=== PATIENT | female | born 1995 | race Caucasian/White ===

== ENCOUNTER → 2017-12-01 07:43 | Outpatient (CLI) | payer BC, SELFPAY ==
--- NOTE | 2017-12-01 07:52 | NM_ITS ---
CLINICAL: 22-year-old female with reported history of chronic nausea. SEMI-SOLID PHASE 99m Tc SULFUR COLLOID GASTRIC EMPTYING STUDY COMPARISON: None available FINDINGS: The patient was administered 1.1 mCi of 99m Tc sulfur colloid mixed with oatmeal and consumed per os. Image acquisitions in the anterior-posterior projections for a total of 60 minutes. There is prompt visualization of the stomach. There is no gastroesophageal reflux identified. The T1/2 linear fit was calculated to be 28.32 minutes, (Normal: 12-56 minutes). NM/Gastric Emptying Study IMPRESSION: 1. NORMAL 99m Tc sulfur colloid semi-solid phase (oatmeal) gastric emptying imaging examination. A. There is normal and preserved semi-solid phase gastric emptying compared to normal controls. (Nettie et al, J Nucl Med Tech 38: 186, 2010). Electronically Signed: Mo Benson DO at 9:26 EST Tel , Service support ,
== END ==
PROVIDERS: Family Provider Nurse Practitioner; PCP Nurse Practitioner; Visit Provider Internal Medicine Gastroenterology
DX: R11.0 Nausea (principal)
CPT/HCPCS: 78264; A9541

== ENCOUNTER → 2017-12-23 13:10 | Outpatient (CLI) | payer BC, SELFPAY ==
--- NOTE | 2017-12-23 13:21 | US_ITS ---
STUDY: ULTRASOUND OF THE FEMALE PELVIS - COMPLETE REASON FOR EXAM: Female, 22 years old. Pelvic pain LMP: 11/29/2017 TECHNIQUE: Transabdominal TECHNICAL QUALITY: Adequate. COMPARISON: July 17, 2017 FINDINGS: The uterus is anteverted and is in a midline position. The uterus measures 10.0 x 5.5 x 2.4 cm. Normal uterine cervix. The endometrium measures 2.5 mm in thickness, and is hyperechoic. There is no demonstrated endometrial mass. There is no demonstrated myometrial mass. I.U.D. - The patient does not have an I.U.D. The right ovary is visualized. The right ovary measures 5.2 x 4.4 x 3.4 cm. There is a 4.5 x 3.3 x 3.0 cm right ovarian cyst that contains a fluid/fluid level. There is normal arterial and normal venous vascularity. The left ovary is visualized. The left ovary measures 2.9 x 2.9 x 3.5 cm. There is no left ovarian cyst or ovarian mass. There is no visualized left adnexal mass or complex lesion. There is normal arterial and normal venous vascularity. There is no fluid in the cul-de-sac. The pre void volume of the bladder was 411 ml. US/Pelvic (Non ) IMPRESSION: Enlarged right ovary secondary to a complex cyst that likely reflects an underlying hemorrhagic cyst or endometrioma, recommend follow-up ultrasound in 6-8 weeks to assess for resolution. Electronically Signed: Kasia Arshad MD at 19:45 EST Tel , Service support ,
== END ==
PROVIDERS: Family Provider Nurse Practitioner; PCP Nurse Practitioner; Visit Provider Nurse Practitioner Women's Health
DX: R10.2 Pelvic and perineal pain (principal)
CPT/HCPCS: 76856; 93976

== ENCOUNTER → 2018-01-19 10:50 | Outpatient (CLI) | payer BC, SELFPAY ==
--- NOTE | 2018-01-19 10:58 | RAD_ITS ---
STUDY: X-RAY - UNILATERAL RIBS ( LEFT ) REASON FOR EXAM: Female, 22 years old. Chest pain. TECHNIQUE: 4 view(s) of the ribs. COMPARISON: None. FINDINGS: Normal visualized ribs without a demonstrated fracture. The visualized lung is clear and expanded. RAD/Ribs Unil 2V No CXR IMPRESSION: Normal x-ray examination of the ribs. Electronically Signed: Moises Mcfarlane MD at 8:26 EDT , Service support ,
== END ==
LOC: HPRAD 10:55
PROVIDERS: Family Provider Nurse Practitioner; PCP Nurse Practitioner; Visit Provider Nurse Practitioner
DX: R10.9 Unspecified abdominal pain (principal)
CPT/HCPCS: 71100

== ENCOUNTER → 2018-01-25 09:15 | Outpatient (CLI) | payer BC, SELFPAY ==
--- NOTE | 2018-01-25 09:17 | US_ITS ---
STUDY: ABDOMINAL ULTRASOUND REASON FOR EXAM: Female, 22 years old. Left upper quadrant pain TECHNIQUE: Transabdominal ultrasound was performed with real-time and static granger scale imaging. TECHNICAL QUALITY: Adequate. COMPARISON: None. FINDINGS: Liver: The liver measures 15.6 cm. There is normal echogenicity of the liver. The bile ducts are within normal limits. There is hepatic color flow. The direction of portal flow is hepatopetal. There is no demonstrated mass lesion. Portal vein measurement: 9 mm Gallbladder: Normal distended gallbladder. The gallbladder wall measures 2 mm. There is a negative sonographic Fuller's sign. There is no pericholecystic fluid. There are no gallstones. Common Bile Duct (C.B.D.): The common bile duct measures 3 mm. Pancreas: Normal size of the head, body and tail of the pancreas. There is normal echogenicity of the pancreas. There is no demonstrated pancreatic mass or cyst. Spleen: Normal size of the spleen. The spleen measures 11.8 cm. Right Kidney: Normal size of the right kidney. The right kidney measures 11.1 x 4.7 x 3.9 cm. Normal renal cortex. The right cortex measures 1.7 cm. There is no demonstrated renal mass or cyst. There is no right hydronephrosis. Left Kidney: Normal size of the left kidney. The left kidney measures 12.2 x 4.6 x 5.6 cm. Normal renal cortex. The left cortex measures 1.3 cm. There is no demonstrated renal mass or cyst. There is no left hydronephrosis. Aorta: Tapers normally I.V.C.: The IVC is patent. There is no ascites. US/Abdomen Complete IMPRESSION: Normal abdominal ultrasound examination. Electronically Signed: Ap Zapien MD at 10:23 EDT , Service support ,
== END ==
LOC: USHP 09:16
PROVIDERS: Family Provider Nurse Practitioner; PCP Nurse Practitioner; Visit Provider Nurse Practitioner
DX: R10.9 Unspecified abdominal pain (principal)
CPT/HCPCS: 76700

== ENCOUNTER → 2018-01-26 09:00 | Outpatient (CLI) | payer BC, SELFPAY ==
--- NOTE | 2018-01-26 09:03 | US_ITS ---
STUDY: ULTRASOUND OF THE FEMALE PELVIS REASON FOR EXAM: Female, 22 years old. Follow-up right ovarian cyst LMP: January 09, 2018 TECHNIQUE: Transverse and longitudinal imaging of the pelvis was obtained transvaginally using real-time ultrasound. COMPARISON: December 23, 2017 FINDINGS: The uterus is anteverted and is in a midline position. The uterus measures 8.7 x 3.0 x 4.7 cm. The cervix is unremarkable. The endometrium measures 6.0 mm in thickness, and is hyperechoic. There is no demonstrated endometrial mass. There is no demonstrated myometrial mass. I.U.D. - The patient does not have an I.U.D. The right ovary is visualized. The right ovary measures 4.4 x 1.7 x 2.5 cm. There are follicles in the right ovary without a dominant cyst. There is no visualized right adnexal mass or complex lesion. There is normal arterial and normal venous vascularity. The left ovary is visualized. The left ovary measures 2.9 x 1.7 x 2.5 cm. There are follicles in the left ovary without a dominant cyst. There is no visualized left adnexal mass or complex lesion. There is normal arterial and normal venous vascularity. There is no fluid in the cul-de-sac. US/Pelvic (Non ) IMPRESSION: There are follicles in both ovaries. The cyst seen previously in the right ovary is no longer present. Electronically Signed: Clari Abbott MD at 15:50 EDT Tel Direct: [phone], Service support ,
--- NOTE | 2018-01-26 09:37 | US_ITS ---
STUDY: ULTRASOUND OF THE FEMALE PELVIS REASON FOR EXAM: Female, 22 years old. Follow-up right ovarian cyst LMP: January 09, 2018 TECHNIQUE: Transverse and longitudinal imaging of the pelvis was obtained transvaginally using real-time ultrasound. COMPARISON: December 23, 2017 FINDINGS: The uterus is anteverted and is in a midline position. The uterus measures 8.7 x 3.0 x 4.7 cm. The cervix is unremarkable. The endometrium measures 6.0 mm in thickness, and is hyperechoic. There is no demonstrated endometrial mass. There is no demonstrated myometrial mass. I.U.D. - The patient does not have an I.U.D. The right ovary is visualized. The right ovary measures 4.4 x 1.7 x 2.5 cm. There are follicles in the right ovary without a dominant cyst. There is no visualized right adnexal mass or complex lesion. There is normal arterial and normal venous vascularity. The left ovary is visualized. The left ovary measures 2.9 x 1.7 x 2.5 cm. There are follicles in the left ovary without a dominant cyst. There is no visualized left adnexal mass or complex lesion. There is normal arterial and normal venous vascularity. There is no fluid in the cul-de-sac. US/Transvaginal Non- IMPRESSION: There are follicles in both ovaries. The cyst seen previously in the right ovary is no longer present. Electronically Signed: Clari Abbott MD at 15:50 EDT Tel Direct: [phone], Service support ,
== END ==
LOC: USHP 09:01
PROVIDERS: Family Provider Nurse Practitioner; PCP Nurse Practitioner; Visit Provider Nurse Practitioner Women's Health
DX: N83.291 Other ovarian cyst, right side (principal)
CPT/HCPCS: 76830; 76856; 93976

== ENCOUNTER → 2018-05-24 12:03 | Outpatient (CLI) | payer BC, SELFPAY ==
[2018-05-24 12:22] LABS: Absolute Lymphocyte Count 2.29 X10^3/ul (0.83-4.51); Basophil# 0.02 X10^3/uL; Basophil% 0.3 % (0-1); Eosinophil# 0.17 X10^3/uL; Eosinophils% 2.5 % (0-5); Hematocrit 41.8 % (37-47); Hemoglobin 13.2 g/dl (12.0-15.0); Lymphocyte # 2.29 X10^3/ul (4.0); Lymphocyte % 33.5 % (19-41); Mean Corp Hgb Conc 31.6 g/gl (32-36); Mean Corpuscular Volume 79.2 fL (81-99); Mean Platelet Vol. 9.6 fl (6.2-12.0); Monocyte# 0.38 X10^3/uL; Monocyte% 5.6 % (0-10); Neutrophil # 3.97 X10^3/uL (2.7-7.7); POSITIVE COUNT NO; POSITIVE DIFFERENTIAL NO; POSITIVE MORPHOLOGY NO; Platelet Count 285 K/mm3 (150-450); RBC Distribution Width CV 13.1 % (11.6-14.6); RBC Distribution Width SD 37.4 fl (35.1-43.9); Red Blood Count 5.28 M/mm3 (4.2-5.4); White Blood Count 6.8 K/mm3 (4.4-11.0)
[2018-05-24 12:35] LABS: ALB/GLOB Ratio 1.2 RATIO (0.9-2.4); AST(SGOT) 14 U/L (15-37); Alanine Aminotransfer ALT/SGPT 17 U/L (13-56); Alkaline Phosphatase 60 U/L (45-117); Anion Gap 4 (5-15); BUN 8 mg/dL (7-18); BUN/Creat Ratio 8.2 RATIO (10-20); Calcium,Total 8.7 mg/dL (8.5-10.1); Chloride 108 mmol/L (98-107); Creatinine, Serum 0.97 mg/dL (0.55-1.02); EST Glomerular Filtration Rate 75 mL/min (>60); Est Glom Filt Rate - Afr Amer 91 mL/min (>60); Globulin 3.3 g/dL (2.2-4.2); Glucose 84 mg/dL (74-106); Potassium 4.2 mmol/L (3.5-5.1); Protein, Total 7.3 g/dL (6.4-8.2); Sodium Level 140 mmol/L (136-145)
--- NOTE | 2018-05-24 12:37 | CT_ITS ---
STUDY: CT ABDOMEN AND PELVIS WITH CONTRAST REASON FOR EXAM: Female, 22 years old. RLQ PAIN X 6 DAYS, NAUSEA RADIATION DOSAGE (If Supplied By Facility): CTDIvol = ( 19.74 ) mGy, DLP = ( 1213.20 ) mGycm TECHNIQUE: Transaxial images were obtained from the dome of the diaphragm to the symphysis pubis without oral contrast. 100 ml of Isovue 300 contrast was administered. Sagittal and coronal images were reconstructed. Individualized dose optimization techniques were used for this CT. COMPARISON: None. FINDINGS: The visualized lung bases are unremarkable. The visualized portions of the heart are within normal limits. Normal liver. Normal gallbladder and extrahepatic biliary system. Normal spleen. Normal pancreas. Normal bilateral adrenal glands. Normal right kidney. Normal left kidney. Normal visualized stomach. Normal small intestine. Normal colon. The appendix is visualized and appears normal. Normal abdominal aorta. Normal inferior vena cava. Normal retroperitoneum. Normal urinary bladder. Normal abdominal wall. Normal osseous structures. CT/Abdomen/Pelvis WITH Contrast IMPRESSION: Normal enhanced CT of the abdomen and pelvis. Electronically Signed: Franklyn Morales MD at 15:13 EDT Tel , Service support ,
== END ==
PROVIDERS: Family Provider Nurse Practitioner; PCP Nurse Practitioner; Visit Provider Nurse Practitioner Gerontology
DX: R10.31 Right lower quadrant pain (principal)
CPT/HCPCS: 36415; 74177; 80053; 85025; Q9967

== ENCOUNTER → 2018-06-09 08:51 | Outpatient (CLI) | payer BC, SELFPAY ==
--- NOTE | 2018-06-09 08:54 | US_ITS ---
STUDY: THYROID ULTRASOUND REASON FOR EXAM: Female, 22 years old. Thyroid nodules TECHNIQUE: Ultrasound evaluation of the thyroid was performed with real-time and static granger-scale imaging. COMPARISON: 05/01/2014 FINDINGS: RIGHT LOBE: The right lobe of the thyroid gland measures 5.7 x 1.8 x 1.5 cm. There is a homogeneous echotexture. There are multiple anechoic cysts of the right thyroid lobe measuring up to 5 mm that are similar when compared to the prior study. No solid nodules. LEFT LOBE: The left lobe of the thyroid gland measures 4.9 x 1.7 x 1.4 cm. There is a homogeneous echotexture. There are multiple anechoic cysts of the left thyroid lobe measuring up to 5 mm, stable since the prior study. No solid thyroid nodules. ISTHMUS: The isthmus measures 2 mm. The regional lymph nodes are normal. US/Thyroid IMPRESSION: 1. Stable thyromegaly. 2. Stable bilateral colloidal cysts. No solid nodules. Electronically Signed: Paolo Acharya MD at 16:06 EDT , Service support ,
== END ==
LOC: US 08:51
PROVIDERS: Family Provider Nurse Practitioner; PCP Nurse Practitioner; Visit Provider Nurse Practitioner
DX: E04.1 Nontoxic single thyroid nodule (principal)
CPT/HCPCS: 76536

== ENCOUNTER → 2018-06-29 14:41 | Outpatient (CLI) | payer BC, SELFPAY | LOC: CT 14:41 | PROVIDERS: Family Provider Nurse Practitioner; PCP Nurse Practitioner; Visit Provider Otolaryngology | DX: M54.2 Cervicalgia (principal); R22.1 Localized swelling, mass and lump, neck | CPT/HCPCS: 70491; Q9967 ==

== ENCOUNTER → 2018-07-06 14:33 | Outpatient (CLI) | payer BC, SELFPAY ==
[2018-07-06 17:53] LABS: Chlamydia Trachomatis by PCR Negative (Negative); Neisserai gonorrhoeae by PCR Negative (Negative); Probe Check PASS; Sample Adequacy Control PASS; Specimen Processing Control PASS
[2018-07-10 09:18] LABS: HPV Reflexed? NOT INDICATED
== END ==
PROVIDERS: Visit Provider Obstetrics & Gynecology
DX: Z12.4 Encounter for screening for malignant neoplasm of cervix (principal); Z11.3 Encounter for screening for infections with a predominantly sexual mode of transmission
CPT/HCPCS: 87491; 87591; 88175; G0145

== ENCOUNTER → 2019-01-10 11:53 | Outpatient (CLI) | payer BC, SELFPAY ==
--- NOTE | 2019-01-10 12:00 | RAD_ITS ---
STUDY: HYSTEROSALPINGOGRAM. REASON FOR EXAM: Female, 23 years old. Infertility. FLUOROSCOPY TIME (if supplied): (0:35) minutes/seconds. 3 images were obtained. TECHNIQUE: The concrete block plant supervisor performed a hysterosalpingogram. Contrast was injected. COMPARISON: None. FINDINGS: The uterus is unremarkable. The fallopian tubes are patent bilaterally with free spill. RAD/Salpingogram IMPRESSION: Patency of the bilateral fallopian tubes. Electronically Signed: Remy Mcpherson, at 14:30 EDT , Service support ,
== END ==
PROVIDERS: Family Provider Nurse Practitioner; PCP Nurse Practitioner; Referring Provider Obstetrics & Gynecology; Visit Provider Obstetrics & Gynecology
DX: Z31.41 Encounter for fertility testing (principal)
CPT/HCPCS: 58340; 74740; Q9967

== ENCOUNTER → 2019-07-15 10:54 | Outpatient (CLI) | payer BC, SELFPAY ==
--- NOTE | 2019-07-15 11:00 | US_ITS ---
STUDY: ABDOMINAL ULTRASOUND - RIGHT UPPER QUADRANT REASON FOR VISIT: Female, 23 years old. Right upper quadrant pain. TECHNIQUE: Ultrasound evaluation of the right upper quadrant was performed with real-time and static granger-scale imaging. TECHNICAL QUALITY: Adequate. COMPARISON: Comparison is made with prior ultrasound dated January 25, 2018. FINDINGS: Liver: The liver measures 14.9 cm. There is normal echogenicity of the liver. The bile ducts are within normal limits. There is hepatic color flow. The direction of portal flow is hepatopetal. There is no demonstrated mass lesion. Gallbladder: Normal distended gallbladder. The gallbladder wall measures 3.0 mm. There is a negative sonographic Fuller's sign. There is no pericholecystic fluid. There are no gallstones. A 5 mm x 4 mm polyp is seen adherent to the anterior wall of the gallbladder fundus. Common Bile Duct (C.B.D.): The common bile duct measures 2.0 mm. Pancreas: Normal size of the head, body and tail of the pancreas. There is normal echogenicity of the pancreas. There is no demonstrated pancreatic mass or cyst. Right Kidney: Normal size of the right kidney. The right kidney measures 11.2 cm x 5.1 cm x 4.6 cm. Normal renal cortex. The right cortex measures 1.6 cm. There is no demonstrated renal mass or cyst. There is no right hydronephrosis. US/Abdomen Limited IMPRESSION: 5 mm x 4 mm polyp along the anterior wall of the gallbladder fundus. Electronically Signed: Remy Mcpherson, at 15:23 EDT , Service support ,
== END ==
PROVIDERS: Family Provider Nurse Practitioner; PCP Nurse Practitioner; Referring Provider Internal Medicine; Visit Provider Internal Medicine
DX: R10.11 Right upper quadrant pain (principal)
CPT/HCPCS: 76705

== ENCOUNTER → 2019-07-21 11:42 | Outpatient (CLI) | payer BC, SELFPAY ==
--- NOTE | 2019-07-21 11:44 | NM_ITS ---
CLINICAL: 23-year-old female with reported history of right upper quadrant abdominal pain. RADIONUCLIDE HEPATOBILIARY SCINTIGRAPHY COMPARISON: Abdominal ultrasound report dated 07/15/2019 FINDINGS: Following the intravenous administration of 5.4 mCi of 99m Tc Mebrofenin, hepatobiliary images reveal: 1. Relatively prompt and homogeneous radiopharmaceutical concentration is noted by a normal sized liver. No parenchymal defects are identified. 2. Gallbladder activity is identified at 15 minutes post radiopharmaceutical administration. 3. Small intestinal tract is observed at 45 minutes following tracer injection. 4. Washout of the radiopharmaceutical by the hepatic parenchyma appears qualitatively normal. Cholecystokinin (0.02 ug/kg) was administered intravenously over a 30-minute period. The post CCK gallbladder ejection fraction calculated at 20 minutes following Cholecystokinin administration was noted to be 75.8 % (normal greater than 35%). During 30 minutes of post CCK imaging, there is no scintigraphic evidence of reflux of the radiotracer into the common hepatic duct or refilling of the gallbladder. AZ/Hepatobilliary Img w/Pharm Int IMPRESSION: 1. NORMAL 99m Tc Mebrofenin hepatobiliary imaging examination with Cholecystokinin. A. A gallbladder ejection fraction calculated to be greater than 35% following the administration of Cholecystokinin makes the probability of functional hepatobiliary disease (gallbladder and/or sphincter of Oddi dyskinesia) and/or organic hepatobiliary disease (chronic acalculous cholecystitis and/or cystic duct syndrome) to be low. (Charles Xavier et al, Journal of Nuclear Medicine 32:1695, 1990). Electronically Signed: Mo Benson DO at 10:47 EDT Tel , Service support ,
== END ==
PROVIDERS: Family Provider Nurse Practitioner; PCP Nurse Practitioner; Referring Provider Nurse Practitioner; Visit Provider Nurse Practitioner
DX: R10.11 Right upper quadrant pain (principal)
CPT/HCPCS: 78227; A9537; J2805

== ENCOUNTER → 2019-11-28 17:01 | Outpatient (CLI) | payer BC, SELFPAY | PROVIDERS: Visit Provider Advanced Practice Midwife | DX: Z12.4 Encounter for screening for malignant neoplasm of cervix (principal) ==

== ENCOUNTER 2020-09-02 15:36 | Emergency (ER) | payer BC, SELFPAY ==
[2020-09-02 15:37] VITALS: BP 139/83; PULSE 114; RESP 20; TEMP 36.7; O2SAT 100; BMI 39.2
[2020-09-02 15:40] VITALS: BP 139/83; PULSE 114; RESP 20; TEMP 36.7; O2SAT 100
[2020-09-02 15:49] VITALS: BP 137/79; PULSE 105; RESP 15; O2SAT 97
--- NOTE | 2020-09-02 16:10 | RAD_ITS ---
STUDY: X-RAY CHEST REASON FOR EXAM: Female, 25 years old. headache, loss of taste and smell, shielded pt 35 wks TECHNIQUE: Single frontal view of the chest. COMPARISON: 10/28/2017 FINDINGS: Azygos lobe. The lungs are clear and expanded. There is no demonstrated pleural abnormality. Normal size heart. Normal mediastinum and varsha. Normal visualized pulmonary arteries. Normal visualized aortic arch and descending thoracic aorta. Normal visualized thoracic spine. Normal visualized ribs, clavicles, and shoulders. There is no demonstrated abnormality of the visualized soft tissue structures of the upper abdomen. RAD/Chest 1 View (Portable) IMPRESSION: Normal x-ray examination of the chest. Electronically Signed: Ye Almeida MD at 17:11 EST Tel , Service support ,
--- NOTE | 2020-09-02 16:13 | ED.DCSUM_ITS ---
- ER Visit Summary Date of Service: 09/02/20 Chief Complaint: Headache with loss of the sense of smell and a mild sore throat. 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 Currently she is on insulin once daily. States her blood sugar is 150 today. Patient states that yesterday a gradual onset of a headache in the top of her head made worse with lights. Associated nausea. No vomiting or diarrhea. Said subjectively she is felt a little warm. Mild sore throat with decreasing smell. Denies any known Covid exposure. Denies any change in her sense of taste. No cough or shortness of breath. No hemoptysis. No dysuria or frequency. No hematuria. No abdominal pain. Physical Examination: Well-appearing young female vital signs stable afebrile. Pulse ox 97% on room air no signs hypoxia. H EENT exam unremarkable. Moist mucous membranes. Give dry reactive eyes motions are intact. Neck nontender. No lymphadenopathy. No meningismus. Able to touch her chin to chest. Lungs clear to auscultation bilaterally. Heart regular rhythm no murmur. Rate about 100. Abdomen gravid uterus nontender. Normal bowel sounds no peritoneal signs. Extremities moves all 4. Calves nontender without edema or cords. Back exam normal. Skin unremarkable. Neurologically she is awake alert with no focal motor deficits. NIH is 0. Equal symmetrical head of merchandise buying strength. Dorsi plantar action intact. [id number]-[id number] fingertip to nose normal. Test Results: BC white count of 6. Hemoglobin 10 consistent with anemia of . Electrolytes potassium 3.3. Normal creatinine normal gap. Glucose is normal at 85. Chest x-ray portable 1 view read as normal both myself and radiologist. Covid test is a send out and is pending. Repeat exam patient is doing well at 5:18 PM. Clinically looks good. Said her headache resolved after the IV fluids, p.o. Tylenol and IV Reglan. Her neurologic exam remains normal. She is comfortable being discharged home. We will follow-up with her TRANSCRIPTION TYPIST. Emergency Department Course and Treatment: 35-week female with gestational diabetes complaining of a mild headache that was gradual in onset not thunderclap headache with a normal neurologic exam. She also has viral type symptoms with loss of smell. Screening labs. IV fluids and Reglan for her headache. Covid testing. Treatment Plan: Fluids and rest. Tylenol for body aches and any headache. Waiting on the outpatient Covid results. Follow-up with her TRANSCRIPTION TYPIST. Disposition: Discharge Impression: Acute cephalgia at 35 weeks G1, P0 Acute cephalgia History of gestational diabetes Rule out Covid Viral syndrome This note was generated with Whi dictation software. It may contain incorrect words, spelling, and punctuation that were not noted in review of the chart prior to signing ED Disposition - Plan for ED Patient: Referrals: Laly Vega NP, IT HELP DESK ASSOCIATE[facility] [Primary Care Provider] -
[2020-09-02] MEDS: 0.9% Normal Saline 1,000 ML 1000 ML IV (16:28)
[2020-09-02] MEDS: Acetaminophen 500 MG Tablet 1000 MG PO (16:28)
[2020-09-02] MEDS: Metoclopramide 10 MG/2 ML Vial IV (16:28)
[2020-09-02 16:44] LABS: Absolute Lymphocyte Count 0.53 X10^3/uL (0.83-4.51); Absolute Neutrophil Count 5.3 X10^3/uL (2.0-7.7); Basophil# 0.01 X10^3/uL; Basophil% 0.2 % (0-1); Eosinophil# 0.07 X10^3/uL; Eosinophils% 1.1 % (0-5); Hemoglobin 10.3 g/dL (12.0-15.0); Lymphocyte # 0.53 X10^3/ul (4.0); Lymphocyte % 8.4 % (19-41); Mean Corp Hgb Conc 31.2 g/dL (32-36); Mean Corpuscular Hgb 23.9 pg (27.0-32.0); Mean Corpuscular Volume 76.6 fL (81-99); Mean Platelet Vol. 10.3 fl (6.2-12.0); Monocyte# 0.44 X10^3/uL; Monocyte% 6.9 % (0-10); NRBC Flagged by Analyzer 0 % (0-5); Neutrophil # 5.26 X10^3/uL (2.7-7.7); Neutrophil % 82.9 % (47-70); POSITIVE DIFFERENTIAL YES; Platelet Count 262 K/mm3 (150-450); RBC Distribution Width CV 13.9 % (11.6-14.6); RBC Distribution Width SD 38.6 fl (35.1-43.9); Red Blood Count 4.31 M/mm3 (4.2-5.4); White Blood Count 6.3 K/mm3 (4.4-11.0)
[2020-09-02 16:52] LABS: Differential Indicated SCAN CRITERIA MET
[2020-09-02 16:57] LABS: Anion Gap 7 (5-15); BUN 5 mg/dL (7-18); BUN/Creat Ratio 6.6 RATIO (10-20); Chloride 109 mmol/L (98-107); Creatinine, Serum 0.76 mg/dL (0.55-1.02); EST Glomerular Filtration Rate 99 mL/min (>60); Est Glom Filt Rate - Afr Amer 119 mL/min (>60); Estimated Creatinine Clearance 109.08 ml/min; Glucose 85 mg/dL (74-106); Potassium 3.3 mmol/L (3.5-5.1); Sodium Level 138 mmol/L (136-145)
--- NOTE | 2020-09-02 17:20 | DCINST.ED_ITS ---
ED Disposition - Plan for ED Patient: Disposition: Home or Assisted Living Instructions: ED Headache Unspecified Referrals: Joellen Neely MD [STAFF PHYSICIAN] - 3-5 Days Additional Instructions: Plenty of fluids and rest. Tylenol for any body aches or headache. Follow-up with your LICENSED PROSTHETIST/ORTHOTIST at the [facility]. The outpatient Covid test you will be notified if the results are positive by the state in the next 1 to 5 days typically.
[2020-09-02 17:31] VITALS: BP 115/54; PULSE 110; RESP 15; O2SAT 98
== END 2020-09-02 17:33 | disposition home or self-care (01) ==
PROVIDERS: Emergency Provider Emergency Medicine; PCP Nurse Practitioner
DX: O98.513 Other viral diseases complicating pregnancy, third trimester (principal); U07.1 COVID-19; O24.414 Gestational diabetes mellitus in pregnancy, insulin controlled; Z3A.35 35 weeks gestation of pregnancy
CPT/HCPCS: 71045; 80048; 85025; 87635; 96361; 96374; 99283; J7030; U0003

== ENCOUNTER 2020-09-04 10:55 | Outpatient (CLI) | payer BC, SELFPAY ==
[2020-09-04] VITALS (8 sets, daily range): BP systolic 118–147; BP diastolic 62–84; PULSE 84–111; TEMP 36.2; BMI 39.1
[2020-09-04 11:51] LABS: Hematocrit 34.5 % (37-47); Hemoglobin 10.6 g/dL (12.0-15.0); Mean Corp Hgb Conc 30.7 g/dL (32-36); Mean Corpuscular Hgb 23.5 pg (27.0-32.0); Mean Corpuscular Volume 76.5 fL (81-99); Mean Platelet Vol. 10.3 fl (6.2-12.0); Platelet Count 273 K/mm3 (150-450); RBC Distribution Width CV 14.4 % (11.6-14.6); RBC Distribution Width SD 39.5 fl (35.1-43.9); Red Blood Count 4.51 M/mm3 (4.2-5.4); White Blood Count 7.2 K/mm3 (4.4-11.0)
[2020-09-04 12:02] LABS: Glucose 93 mg/dL (74-106)
[2020-09-04 12:03] LABS: AST(SGOT) 30 U/L (15-37); Alanine Aminotransfer ALT/SGPT 51 U/L (13-56); Creatinine, Serum 0.65 mg/dL (0.55-1.02); EST Glomerular Filtration Rate 117 mL/min (>60); Est Glom Filt Rate - Afr Amer 142 mL/min (>60); Estimated Creatinine Clearance 127.54 ml/min; Uric Acid 3.5 mg/dL (2.6-6.0)
[2020-09-04 12:04] LABS: Protein, Urine (Random) 57.8 mg/dL (<11.9); Protein:Creat Ratio 507 mg/g CRE (0-200)
--- NOTE | 2020-09-04 15:44 | OB.TRI.NOTE ---
History of Present Illness Date of Service: 09/04/20 Reason For Visit: R/O PRE ECLAMPSIA Final SUDHEER: 10/07/20 Gestational age: 35 Weeks and 2 Days Allergies No Known Allergies Allergy (Verified 09/04/20 11:29) Laboratory Studies: Laboratory Tests 09/04/20 09/04/20 09/04/20 Range/Units 11:40 11:40 11:40 WBC (4.4-11.0) K/mm3 RBC (4.2-5.4) M/mm3 Hgb (12.0-15.0) g/dL Hct (37-47) % MCV (81-99) fL MCH (27.0-32.0) pg MCHC (32-36) g/dL RDW Std Deviation (35.1-43.9) fl RDW Coeff of Tobi (11.6-14.6) % Plt Count (150-450) K/mm3 MPV (6.2-12.0) fl Creatinine 0.65 (0.55-1.02) mg/dL Estim Creat Clear Calc 127.54 ml/min Est GFR (MDRD) Af Amer 142 (>60) mL/min Est GFR (MDRD) Non-Af 117 (>60) mL/min Glucose 93 (74-106) mg/dL Uric Acid 3.5 (2.6-6.0) mg/dL AST 30 (15-37) U/L ALT 51 (13-56) U/L U Random Total Protein 57.8 H (<11.9) mg/dL Urine Creatinine 114.00 (NO RANGE EST.) mg/dL Protein/Creatinin Ratio 507 H (0-200) mg/g CRE 09/04/20 Range/Units 11:40 WBC 7.2 (4.4-11.0) K/mm3 RBC 4.51 (4.2-5.4) M/mm3 Hgb 10.6 L (12.0-15.0) g/dL Hct 34.5 L (37-47) % MCV 76.5 L (81-99) fL MCH 23.5 L (27.0-32.0) pg MCHC 30.7 L (32-36) g/dL RDW Std Deviation 39.5 (35.1-43.9) fl RDW Coeff of Tobi 14.4 (11.6-14.6) % Plt Count 273 (150-450) K/mm3 MPV 10.3 (6.2-12.0) fl Creatinine (0.55-1.02) mg/dL Estim Creat Clear Calc ml/min Est GFR (MDRD) Af Amer (>60) mL/min Est GFR (MDRD) Non-Af (>60) mL/min Glucose (74-106) mg/dL Uric Acid (2.6-6.0) mg/dL AST (15-37) U/L ALT (13-56) U/L U Random Total Protein (<11.9) mg/dL Urine Creatinine (NO RANGE EST.) mg/dL Protein/Creatinin Ratio (0-200) mg/g CRE Physical Exam Vitals: Vital Signs Temp Pulse BP 97.2 F L 94 123/84 H 09/04/20 11:25 09/04/20 12:33 09/04/20 12:33 NST - FHR Rate Baby A Baseline: 120 Variability:: Moderate Accelerations:: 15 x 15 Decelerations:: Variable NST Reactive:: Yes Uterine Activity:: quiet Impression/Plan Reactive NST for elevated BP in , has GDM - on insulin BP's overall normal. Labs normal other than elevated urine protein.
== END 2020-09-04 12:50 | disposition home or self-care (01) ==
LOC: WPOUT 11:09 → WP 11:10
PROVIDERS: PCP Nurse Practitioner; Referring Provider Obstetrics & Gynecology; Visit Provider Obstetrics & Gynecology
DX: O24.414 Gestational diabetes mellitus in pregnancy, insulin controlled (principal); O26.893 Other specified pregnancy related conditions, third trimester; R03.0 Elevated blood-pressure reading, without diagnosis of hypertension; Z3A.35 35 weeks gestation of pregnancy
CPT/HCPCS: 36415; 59025; 59050; 82565; 82570; 82947; 84156; 84450; 84460; 84550; 85027; 99218; G0378

== ENCOUNTER 2020-09-16 19:08 | Inpatient (IN) | payer BC, SELFPAY ==
[2020-09-04 11:28] VITALS: BMI 39.1
[2020-09-16 19:44] VITALS: BP 143/86; PULSE 93; TEMP 36.3; O2SAT 97
[2020-09-16 19:54] VITALS: BMI 39.6
[2020-09-16] MEDS: Lactated Ringers 1,000 ML 50 ML IV (20:00)
[2020-09-16 20:22] LABS: Absolute Lymphocyte Count 1.92 X10^3/uL (0.83-4.51); Basophil# 0.01 X10^3/uL; Basophil% 0.1 % (0-1); Eosinophil# 0.08 X10^3/uL; Eosinophils% 0.8 % (0-5); Hematocrit 34.3 % (37-47); Hemoglobin 10.6 g/dL (12.0-15.0); Lymphocyte # 1.92 X10^3/ul (4.0); Lymphocyte % 19.9 % (19-41); Mean Corp Hgb Conc 30.9 g/dL (32-36); Mean Corpuscular Hgb 23.1 pg (27.0-32.0); Mean Corpuscular Volume 74.7 fL (81-99); Mean Platelet Vol. 10.8 fl (6.2-12.0); Monocyte# 0.65 X10^3/uL; Monocyte% 6.7 % (0-10); NRBC Flagged by Analyzer 0 % (0-5); Neutrophil # 6.96 X10^3/uL (2.7-7.7); Platelet Count 387 K/mm3 (150-450); RBC Distribution Width CV 13.8 % (11.6-14.6); Red Blood Count 4.59 M/mm3 (4.2-5.4); White Blood Count 9.7 K/mm3 (4.4-11.0)
[2020-09-16 20:39] LABS: AST(SGOT) 65 U/L (15-37); Alanine Aminotransfer ALT/SGPT 137 U/L (13-56); Creatinine, Serum 0.95 mg/dL (0.55-1.02); EST Glomerular Filtration Rate 75 mL/min (>60); Est Glom Filt Rate - Afr Amer 91 mL/min (>60); Estimated Creatinine Clearance 87.27 ml/min; Uric Acid 3.8 mg/dL (2.6-6.0)
[2020-09-16 20:46] LABS: Bedside Glucose 75 mg/dL (70-110)
[2020-09-16 20:54] LABS: Prothrombin Time (Protime)PT. 12.3 SECONDS (11.7-14.9)
[2020-09-16 20:55] LABS: Partial Thromboplast Time 25.9 Seconds (24.1-36.2)
[2020-09-16] MEDS: miSOPROStol 25 MCG TABLET VAGINAL (20:59)
[2020-09-16 21:45] VITALS: BP 142/78
[2020-09-16 21:46] VITALS: PULSE 83; O2SAT 98
[2020-09-16 21:50] LABS: Bedside Glucose 78 mg/dL (70-110)
[2020-09-16] MEDS: Insulin Human 75/25 Kwickpen 36 UNIT SC (23:30)
[2020-09-16] MEDS: Acetaminophen 325 MG Tablet PO (23:39)
[2020-09-16 23:41] LABS: Bedside Glucose 102 mg/dL (70-110)
[2020-09-16 23:42] VITALS: BP 148/92; PULSE 74; TEMP 36.7
[2020-09-17] VITALS (47 sets, daily range): BP systolic 131–167; BP diastolic 64–91; PULSE 65–106; RESP 16; TEMP 36–37.2; O2SAT 81–100
[2020-09-17] MEDS: miSOPROStol 50 MCG TABLET VAGINAL ×2 (01:03→06:53)
[2020-09-17] MEDS: fentaNYL 100 MCG/2 ML Ampul IV ×2 (01:13→03:41)
[2020-09-17 03:41] LABS: Bedside Glucose 73 mg/dL (70-110)
[2020-09-17 07:21] LABS: Bedside Glucose 88 mg/dL (70-110)
[2020-09-17] MEDS: HYDROmorphone 1 MG/ML Syringe IV (07:39)
--- NOTE | 2020-09-17 08:09 | PCM.HP.OB ---
- Problem List (1) 37 weeks gestation of Status: Acute (2) Gestational hypertension Status: Acute (3) Cholestasis during Status: Acute (4) Gestational diabetes Status: Acute (5) Hereditary angioedema Status: Acute (6) Primiparous Status: Acute History Date of Admission: 09/16/20 Final SUDHEER: 10/07/20 Gestational age: 37 Weeks and 1 Days History of this : This is a 25 year-old, G 1, P 0, at 37 weeks gestational age who presents for scheduled IOL for uncontrolled A2GDM, cholestasis of , gHTN. Allergies No Known Allergies Allergy (Verified 09/16/20 20:08) Home Medications: Home Medications C1 Esterase Inhibitor [Haegarda] 6,000 unit SC WESA 09/02/20 Insulin NPH Human Isophane [Novolin N Flexpen] 30 unit SQ QHS 09/02/20 Pnv No.95/Ferrous Fum/Folic AC [ Caplet] 1 ea PO DAILY 09/02/20 Smoking Status: Never smoker Number of Fetus(es): 1 NST - FHR Rate Baby A FHR Category:: Category I History Past Pregnancies: Past Pregnancies Delivery Date Name GA/ Weeks Outcome Route Wt Sex Labor Length Anesthesia Delivery Location Provider FOB Labs: See [facility] records Expected Infant Delivery Method: Spontaneous Vaginal Physical Exam Vitals: Vital Signs Temp Pulse BP Pulse Ox 98.8 F 72 138/86 H 97 09/17/20 07:45 09/17/20 07:45 09/17/20 07:45 09/17/20 07:45 Assessment/Plan All Active Problems (This Medical Record has been edited. Action required.) 37 weeks gestation of (Acute) Gestational hypertension (Acute) Cholestasis during (Acute) Gestational diabetes (Acute) Hereditary angioedema (Acute) Primiparous (Acute) This is a 25 year-old, G 1, P 0, at 37 weeks gestational age for scheduled induction of labor for uncontrolled gestational diabetes, gestational hypertension, cholestasis of . - A2GDM: Bedtime NPH was given last night. Diabetic protocol in place. BG within goal. Cont close monitoring. EFW 2,692 g (78%) 5lb 15 oz on 08/28 - gHTN: LFT's elevated. BP's mild range. No symptoms of pre-e. Cont to closely monitor for pre eclampsia - Cholestasis of : LFT's elevated. Will repeat - Angioedema: Early epidural as it can be induced by stress per patient. Significant other brought her medication for h/o angioedema, which she will be given on 09/17 - Cytotec was given overnight. Will start pit when able. Will attempt cervical carter placement today - Otherwise routine intrapartum management - GBS negative - EFW expected to be <4,500 g and pelvis adequate. Expect vaginal delivery - Rh negative. Rhogam candidate
[2020-09-17] MEDS: Lactated Ringers 500 ML 999 ML IV ×2 (09:35→10:59)
[2020-09-17] MEDS: fentaNYL-bupivacaine (epidural) 100 ML BAG EPIDURAL (10:30)
[2020-09-17 12:30] LABS: Bedside Glucose 110 mg/dL (70-110)
[2020-09-17 12:30] LABS: Bedside Glucose 138 mg/dL (70-110)
[2020-09-17] MEDS: Lactated Ringers 1,000 ML 200 ML IV (12:50)
[2020-09-17 13:15] LABS: Bedside Glucose 117 mg/dL (70-110)
--- NOTE | 2020-09-17 14:36 | PLAC_PTH ---
PATIENT: BAM SYED LOC: [facility] U#:[id number] AGE/SX: 25/F ROOM: WP008 RE09/16/[address]: Dr. Joellen Neely MD : 1995 BED: 1 DIS: 09/19/2020 SPEC #: [id number] RECD: 09/18/20 07:55 STATUS: LEX REQ #: [id number] YOLA: 09/17/20 14:[address]: Joellen Neely DEPT: SURGICAL PATHOLOGY RECD BY: Hannah Obando ENTERED: 09/18/20 07:56 SP TYPE: PLACENTA OTHR DR: Laly Vega, ARTISTS' MODEL-C Tissues: Placenta, NOS Procedures: Surgery Specimen Level V HEADER OPERATION: Vaginal delivery PRE-OP DIAGNOSIS: Labor TISSUE SUBMITTED: Placenta MICROSCOPIC DIAGNOSIS Daniels placenta (594 gm): Umbilical cord - trivascular with no inflammation. Placental membranes - no pathologic change. Placental disc - Bony-Oneil change and mild intravillous congestion. AM:melinda 09/19/20 MICROSCOPIC DESCRIPTION Slides are reviewed. GROSS DESCRIPTION SPECIMEN: PLACENTA / CLINICAL INFORMATION: A. Weight: 3.105 kg B. Gestational Age: 37 weeks C. Sex: Male PLACENTAL WEIGHT (POST FIXATION): 594 gm PLACENTAL DIMENSIONS: 17 x 17 x 3.5 cm PLACENTAL SHAPE: Usual ovoid PLACENTAL WEIGHT FOR GESTATIONAL AGE: Over 99th percentile MEMBRANES - Present A. Insertion: Marginal B. Site of rupture from edge: 3.5 cm from edge of placental disc C. Color of membrane: Alonzo-granger D. Abnormalities: None UMBILICAL CORD - Present A. Color: Alonzo-granger B. Insertion: Eccentric C. Length: 34 cm D. Diameter: 1.5 cm E. Number of vessels: Three F. Abnormalities: None PLACENTAL DISC - Present A. Color of surface: Alonzo-granger B. surface abnormalities: None C. Maternal cotyledons: Intact with minimal tears D. Attached retro placental clot: No clot E. Cut surface: Dark red and spongy F. Lesions: None G. Separate clot: 13 x 10 x 1.5 cm SECTIONS SUBMITTED: 1. Umbilical cord ( end notched) 2. Umbilical cord, placental end 3. Membrane roll 4. Placental disc, and maternal surfaces 5. Placental disc, and maternal surfaces 6. Placental disc, and maternal surfaces AM:melinda 09/18/20 TC:5 CPT: 82611
[2020-09-17] MEDS: Oxytocin 30 units/NS 500 ml 30 UNITS/500 ML IV.SOLN 334 UNITS IV (14:42)
--- NOTE | 2020-09-17 15:10 | PCM.OPRPT ---
Problem List (1) 37 weeks gestation of Status: Acute (2) Gestational hypertension Status: Acute (3) Cholestasis during Status: Acute (4) Gestational diabetes Status: Acute (5) Hereditary angioedema Status: Acute (6) Primiparous Status: Acute (7) History of anxiety Status: Acute Report of Operation Date of Procedure: 09/17/20 Pre-Operative Diagnosis: 37 week gestation, uncontrolled A2GDM, covid in , gHTN, cholestasis in Post-Operative Diagnosis: As above Surgery/Procedure Performed:: Description of Surgical Findings:: Normal appearing placenta with three-vessel cord. Baby delivered in occiput anterior position. master barber: None Type of Anesthesia:: Epidural Special Medications: None Specimen's removed: Placenta Drains: Couch Estimated Blood Loss (mL): 200 Description of Procedure: Patient complete and pushing. Head delivered in occiput anterior position, followed by anterior shoulder, posterior shoulder, and body of without any force or delay. Viable male infant was delivered atraumatically and placed on maternal abdomen. Cord was clamped and cut after 60 sec delay by the father the baby. Placenta was delivered with fundal massage. Placenta was normal-appearing and intact with a three-vessel cord. Fundus was firm and bleeding hemostatic. A first-degree vaginal laceration was repaired with 3-0 Vicryl in the usual fashion. Needle counts were correct. Vaginal sweep was performed. Discussed plan with patient for a fasting blood sugar in the morning given uncontrolled gestational diabetes. Discussed risk, benefits, alternatives to Lovenox , both while inpatient and for 2-4 weeks given Covid in . Lovenox was discussed with maternal- medicine who feels that for patient's without Covid in , and who have other risk factors for DVT, Lovenox for 2-4 weeks is reasonable. The patient desires Lovenox for 2-4 weeks . We will also repeat preeclampsia labs in the morning. Discussed to notify us of any preeclampsia symptoms. Grafts/Implants Used: None - Complications None - Admit VTE Documentation VTE Present on Admission: No VTE Mechan Device Prophylaxis: SCD's VTE Pharm Prophylaxis ordered?: Yes Vaginal Delivery Maternal Presentation: Medically Indicated Induction Method of Induction: Cytotec Amniotic Membrane Rupture Type: Spontaneous Amniotic Fluid Description: Clear Surgery/ Procedure Performed: Spontaneous Vaginal Delivery Type of Anesthesia: Epidural Presentation: Vertex Placental Delivery Description: Expressed Placenta Disposition: [facility] Cord Vessel Description: 3 Vessels Cord Entanglement: None Drain: Couch to straight drain Infant A gender: Male (1 minute): 9 (5 minute): 9 Episiotomy Description: None Laceration: None Medications given after delivery: IV Pitocin Complications: None
[2020-09-17 15:26] LABS: Bedside Glucose 83 mg/dL (70-110)
[2020-09-17] MEDS: Ibuprofen 600 MG Tablet PO (23:55)
[2020-09-18] VITALS (7 sets, daily range): BP systolic 132–145; BP diastolic 73–88; PULSE 71–84; RESP 14–18; TEMP 36.2–36.9; O2SAT 97
[2020-09-18] MEDS: Enoxaparin 40 MG/0.4 ML Syringe SC (05:00)
[2020-09-18 05:25] LABS: Bedside Glucose 85 mg/dL (70-110)
[2020-09-18 05:25] LABS: Hematocrit 32.4 % (37-47); Hemoglobin 10.1 g/dL (12.0-15.0); Mean Corp Hgb Conc 31.2 g/dL (32-36); Mean Corpuscular Hgb 23.4 pg (27.0-32.0); Mean Platelet Vol. 10.5 fl (6.2-12.0); Platelet Count 356 K/mm3 (150-450); RBC Distribution Width SD 37.4 fl (35.1-43.9); Red Blood Count 4.32 M/mm3 (4.2-5.4); White Blood Count 13.9 K/mm3 (4.4-11.0)
[2020-09-18] MEDS: Acetaminophen 500 MG Tablet 1000 MG PO ×2 (05:30→20:51)
[2020-09-18 05:45] LABS: ALB/GLOB Ratio 0.6 RATIO (0.9-2.4); AST(SGOT) 35 U/L (15-37); Alanine Aminotransfer ALT/SGPT 91 U/L (13-56); Albumin, Serum 2.1 g/dL (3.2-5.0); Alkaline Phosphatase 218 U/L (45-117); Anion Gap 7 (5-15); BUN 8 mg/dL (7-18); BUN/Creat Ratio 12.3 RATIO (10-20); Calcium,Total 8.5 mg/dL (8.5-10.1); Chloride 110 mmol/L (98-107); Creatinine, Serum 0.65 mg/dL (0.55-1.02); EST Glomerular Filtration Rate 117 mL/min (>60); Est Glom Filt Rate - Afr Amer 142 mL/min (>60); Estimated Creatinine Clearance 127.54 ml/min; Globulin 3.6 g/dL (2.2-4.2); Glucose 86 mg/dL (74-106); Potassium 3.7 mmol/L (3.5-5.1); Protein, Total 5.7 g/dL (6.4-8.2); Sodium Level 140 mmol/L (136-145)
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
[2020-09-18] MEDS: Ibuprofen 600 MG Tablet PO (16:16)
--- NOTE | 2020-09-18 16:56 | NURSING ---
pt anxious regarding blood sugars and blood pressures
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
[2020-09-19 01:40] VITALS: PULSE 85; RESP 18; O2SAT 98
[2020-09-19] MEDS: Enoxaparin 40 MG/0.4 ML Syringe SC (05:52)
[2020-09-19 08:25] VITALS: BP 132/86; PULSE 78; RESP 14; TEMP 36.7
[2020-09-19] MEDS: Ibuprofen 600 MG Tablet PO (08:45)
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
[2020-09-19 09:28] LABS: Hematocrit 30.3 % (37-47); Hemoglobin 9.4 g/dL (12.0-15.0); Mean Corpuscular Hgb 23.3 pg (27.0-32.0); Mean Corpuscular Volume 75.2 fL (81-99); Mean Platelet Vol. 10.1 fl (6.2-12.0); Platelet Count 340 K/mm3 (150-450); RBC Distribution Width CV 14.1 % (11.6-14.6); RBC Distribution Width SD 37.7 fl (35.1-43.9); Red Blood Count 4.03 M/mm3 (4.2-5.4)
[2020-09-19 09:48] LABS: ALB/GLOB Ratio 0.6 RATIO (0.9-2.4); AST(SGOT) 18 U/L (15-37); Alanine Aminotransfer ALT/SGPT 72 U/L (13-56); Albumin, Serum 2.3 g/dL (3.2-5.0); Alkaline Phosphatase 197 U/L (45-117); Anion Gap 5 (5-15); BUN 7 mg/dL (7-18); BUN/Creat Ratio 9.5 RATIO (10-20); Calcium,Total 8.3 mg/dL (8.5-10.1); Chloride 113 mmol/L (98-107); Creatinine, Serum 0.74 mg/dL (0.55-1.02); EST Glomerular Filtration Rate 101 mL/min (>60); Est Glom Filt Rate - Afr Amer 123 mL/min (>60); Estimated Creatinine Clearance 112.03 ml/min; Globulin 3.6 g/dL (2.2-4.2); Glucose 95 mg/dL (74-106); Potassium 3.7 mmol/L (3.5-5.1); Protein, Total 5.9 g/dL (6.4-8.2); Sodium Level 142 mmol/L (136-145)
--- NOTE | 2020-09-19 12:06 | PCM.PN.BLA ---
Progress Note BPs are stable. Headache resolved. LFTs are trending down. Evidence of preeclampsia with severe features. DC home and monitor blood pressure. Follow-up in the office in 2 to 7 days or as needed. Call if symptoms of severe preeclampsia or blood pressures in severe range. STROKE Vital Signs/Narrative: Vital Signs Temp Pulse Resp BP 09/19/20 08:25 98.1 F 78 14 132/86 H
--- NOTE | 2020-09-19 12:07 | DCINST_ITS ---
Discharge Diet: No Restrictions Discharge Activity: Return to Normal Activity, May not drive while taking narcotic pain medications., May Shower May resume sexual activity in: 4-6 weeks Additional Activity Instructions:: Nothing in the vagina for 4-6 weeks. You may return to work/school in 6 weeks. Call your doctor if your incision/area has: Continuous Slow Oozing, Sudden Increased Bleeding, Increased Pain/ Swelling, Increased Redness, Foul Smelling Discharge Additional Instructions: If you experience any of the following, contact your healthcare provider. * Bleeding that soaks a pad every hour for 2 hours * Fever 100.4 or higher * Unrelieved incision or abdominal pain * Swelling, redness, discharge or bleeding from your incision or episiotomy site * Your incision begins to separate * Problems urinating (including inability to urinate or burning while urinating). * Visual changes * Severe headache * Flu-like symptoms * Pain or redness in one of both of your breasts * Pain, warmth, tenderness or swelling in your legs, especially the calf area * Frequent nausea and vomiting * Symptoms of depression or anxiety If you experience any of the following, call 911 or go to the nearest Emergency Room. * Chest pain * Problems breathing * Seizure activity * Partial or complete paralysis of a body part, slurred speech, weakness or drooping of the face, or a sudden inability to walk or hold your balance Allergies/Adverse Reactions: Allergies No Known Allergies Allergy (Verified 09/16/20 20:08) Medications to take at Discharge C1 Esterase Inhibitor [Haegarda] 6,000 unit SC WESA 09/02/20 Pnv No.95/Ferrous Fum/Folic AC [ Caplet] 1 ea PO DAILY 09/02/20 Ibuprofen [Motrin] 600 mg PO Q6H PRN #60 tab 09/19/20 Ibuprofen [Motrin] 600 mg PO Q6H PRN #60 tab 09/19/20 The following prescriptions were given: Ibuprofen [Motrin] 600 mg PO Q6H PRN #60 tab PRN Reason: Pain Transmission Status: Received by [id number] Ibuprofen [Motrin] 600 mg PO Q6H PRN #60 tab PRN Reason: Pain Transmission Status: Pending to [facility] Please Follow Up With: Lorena Hudson, DO - [phone] When: Call to make an appointment with your doctor in 6 weeks. Make an appointment for a blood pressure check within 1 week Primary Care Physician: Laly Vega NP, ACCELERATOR TECHNICIAN-C [Primary Care Provider] - Test Results: Test results from this visit will be discussed in further detail at your follow- up appointment, if applicable.
--- NOTE | 2020-09-19 12:07 | PCM.DCVAG ---
Discharge Diet: No Restrictions Discharge Activity: Return to Normal Activity, May not drive while taking narcotic pain medications., May Shower May resume sexual activity in: 4-6 weeks Additional Activity Instructions:: Nothing in the vagina for 4-6 weeks. You may return to work/school in 6 weeks. Call your doctor if your incision/area has: Continuous Slow Oozing, Sudden Increased Bleeding, Increased Pain/ Swelling, Increased Redness, Foul Smelling Discharge Additional Instructions: If you experience any of the following, contact your healthcare provider. Bleeding that soaks a pad every hour for 2 hours Fever 100.4 or higher Unrelieved incision or abdominal pain Swelling, redness, discharge or bleeding from your incision or episiotomy site Your incision begins to separate Problems urinating (including inability to urinate or burning while urinating). Visual changes Severe headache Flu-like symptoms Pain or redness in one of both of your breasts Pain, warmth, tenderness or swelling in your legs, especially the calf area Frequent nausea and vomiting Symptoms of depression or anxiety If you experience any of the following, call 911 or go to the nearest Emergency Room. Chest pain Problems breathing Seizure activity Partial or complete paralysis of a body part, slurred speech, weakness or drooping of the face, or a sudden inability to walk or hold your balance Allergies/Adverse Reactions: Allergies No Known Allergies Allergy (Verified 09/16/20 20:08) Medications to take at Discharge C1 Esterase Inhibitor [Haegarda] 6,000 unit SC WESA 09/02/20 Pnv No.95/Ferrous Fum/Folic AC [ Caplet] 1 ea PO DAILY 09/02/20 Ibuprofen [Motrin] 600 mg PO Q6H PRN #60 tab 09/19/20 Ibuprofen [Motrin] 600 mg PO Q6H PRN #60 tab 09/19/20 The following prescriptions were given: Ibuprofen [Motrin] 600 mg PO Q6H PRN #60 tab PRN Reason: Pain Transmission Status: Received by [facility] Ibuprofen [Motrin] 600 mg PO Q6H PRN #60 tab PRN Reason: Pain Transmission Status: Pending to [facility] Please Follow Up With: Lorena Hudson, DO - [phone] When: Call to make an appointment with your doctor in 6 weeks. Make an appointment for a blood pressure check within 1 week Primary Care Physician: Laly Vega NP, PLUMBING HARDWARE ASSEMBLER-C [Primary Care Provider] - Test Results: Test results from this visit will be discussed in further detail at your follow-up appointment, if applicable.
[2020-09-19 13:13] VITALS: BP 141/89; PULSE 77; RESP 16; TEMP 36.6
[2020-09-19 14:01] LABS: Pathology Specimen OB SEE PATHOLOGY REPORT
--- NOTE | 2020-09-20 16:07 | NURSING ---
Late entry: The order for the patient's epidural medication was entered by Bart Diaz CRNA. The bag of epidural medication was scanned without issues. When I attempted to waste the remaining medication in the bag after delivery, I noticed that the bag was not removed from the patient's account, so I was unable to waste in the accudose. Elizabeth Granda RN witnessed a waste of 13ml into the Rx Destroyer. T The charge nurse, Deysi Rashid, was also made aware.
== END 2020-09-19 13:45 | disposition home or self-care (01) | DRG 805 ==
PROVIDERS: Obstetrics & Gynecology; Admitting Provider Obstetrics & Gynecology; PCP Nurse Practitioner; Visit Provider Obstetrics & Gynecology
DX: O24.429 Gestational diabetes mellitus in childbirth, unspecified control (principal); K83.1 Obstruction of bile duct; Z37.0 Single live birth; O99.12 Other diseases of the blood and blood-forming organs and certain disorders involving the immune mechanism complicating childbirth; O26.62 Liver and biliary tract disorders in childbirth; Z3A.37 37 weeks gestation of pregnancy; Z86.19 Personal history of other infectious and parasitic diseases; D84.1 Defects in the complement system; O13.4 Gestational [pregnancy-induced] hypertension without significant proteinuria, complicating childbirth; O70.0 First degree perineal laceration during delivery
CPT/HCPCS: 59025; 59050; 80053; 82565; 82962; 84450; 84460; 84550; 85025; 85027; 85461; 85610; 85730; 86850; 86900; 86901; 88307; 90384; 99218; J7120; G0378; J2790

== ENCOUNTER 2021-08-01 12:34 | Day surgery (SDC) | payer BC, SELFPAY ==
[2021-08-01] VITALS (7 sets, daily range): BP systolic 116–136; BP diastolic 52–84; PULSE 69–108; RESP 16; TEMP 36.5–36.8; O2SAT 96–100; BMI 32.8
--- NOTE | 2021-08-01 | EGD_PTH ---
PATIENT: BAM SYED LOC: EN U#:[id number] AGE/SX: 25/F ROOM: RE08/01/[address]: Dr. Lanie Galvez MD : 1995 BED: DIS: 08/01/2021 SPEC #: [id number] RECD: 08/01/21 14:45 STATUS: LEX AMRITAOscar #: [id number] YOLA: 08/01/21 00:[address]: Lanie Galvez DEPT: SURGICAL PATHOLOGY RECD BY: Boris Nieves ENTERED: 08/02/21 07:54 SP TYPE: EGD BIOPSY OT DR: Kizzy Nichols, CARE CONSULTANT-C Tissues: A - Duodenum, NOS B - Gastric mucous membrane C - Gastric mucous membrane D - Esophageal mucous membrane Procedures: Special Stain Group II Surgery Specimen Level IV Alcian Blue/PAS (control) HEADER OPERATION: [place] [place] DIAGNOSIS: Blood in stools, dark stools, abdominal bloating TISSUE SUBMITTED: A - Biopsy of second portion of duodenum, B - Antrum biopsy for H. pylori and path, C - Biopsy of GE junction, D - Mid esophagus biopsy MICROSCOPIC DIAGNOSIS A. Second portion of duodenum, biopsy: No pathologic change. B. Gastric antrum, biopsy: Mild chronic gastritis. See comment. C. Gastroesophageal junction, biopsy: Chronic inflammation. No evidence of goblet cell metaplasia. Focal changes of reflux. See comment. D. Mid esophagus, biopsy: Focal changes of reflux. AM:melinda 08/05/2021 COMMENT B. The results of immunohistochemistry for Helicobacter pylori will be reported separately ([id number]). C. Alcian blue/PAS stain with matched control supports the above diagnosis. MICROSCOPIC DESCRIPTION Slides are reviewed. GROSS DESCRIPTION A - Received in fixative is one container labeled with the patient's name and designated biopsy of second portion of duodenum. The specimen consists of two irregular fragments of light candelaria soft tissue that in aggregate measure 0.6 x 0.2 x 0.1 cm. The specimen is totally submitted in one cassette. B - Received in fixative is one container labeled with the patient's name and designated antrum biopsy. The specimen consists of two irregular fragments of light candelaria soft tissue that in aggregate measure 0.5 x 0.3 x 0.1 cm. The specimen is totally submitted in one cassette. C - Received in fixative is one container labeled with the patient's name and designated biopsy of GE junction. The specimen consists of two irregular fragments of light candelaria soft tissue that in aggregate measure 0.5 x 0.3 x 0.1 cm. The specimen is totally submitted in one cassette. D - Received in fixative is one container labeled with the patient's name and designated mid esophagus biopsy. The specimen consists of two irregular fragments of light candelaria soft tissue that in aggregate measure 0.5 x 0.3 x 0.1 cm. The specimen is totally submitted in one cassette. / SJ:rg 08/02/21 TC:3 CPT: 99691 x4, 13648
--- NOTE | 2021-08-01 09:43 | PCM.HP.BLA ---
History and Physical Date of Admission: 08/01/21 HISTORY AND PHYSICAL Ellyn Cherry 1995 REFERRING PHYSICIAN: Self CHIEF COMPLAINT: Consult (blood in stool) HPI: The patient is a 25 year old female referred for endoscopy. Ellyn notes intermittent episodes of blood in stools x 6 weeks. She notes both small amounts of bright red blood in the stool as well as episodes of dark, nearly black-appearing stools and has photos of when these instances occurred. She denies any changes to her diet or changes in bowel habits prior to these occurrences. She states she has had issues with bleeding hemorrhoids in the past, but states this looked different than blood from hemorrhoids or with wiping and was concerned. Patient notes she takes fiber regularly. She denies any known family history of colon cancer or inflammatory bowel disease. The patient notes some occasional mild stomach aches, bloating and nausea. She denies taking NSAIDs on a regular basis. She describes her caffeine use as one or two caffeine-containing beverages twice a week. She does not use tobacco. On review of PCP notes, patient has had episodes of left chest discomfort in the past and was evaluated at the ED on several occasions to rule out cardiac issues and had normal ECGs. Patient notes the episodes have not been associated with shortness of breath or exertion. Per PCP notes the pain was not felt to be consistent with cardiac ischemia, and was felt to be more likely due to GERD or anxiety. Patient notes that she was prescribed famotidine, but never started on this. Patient's past medical history is significant for anxiety and depression. She follows with Dr. Mcknight and Kizzy Nichols CNP in primary care. She denies problems with sedation in the past. PAST MEDICAL HISTORY PAST MEDICAL HISTORY Diagnosis Date ? anxiety ? Blood in stool ? COVID-19 09/05/2020 during 3rd trimester ? GDM, class A2 09/10/2020 ? Hereditary angioedema (HCC) ? Infertility, female PAST SURGICAL HISTORY PAST SURGICAL HISTORY Procedure Laterality Date ? ENDOSCOPY ([place]) ? REMOVE TONSILS/ADENOIDS,<12 Y/O 1999 CURRENT MEDICATIONS Current Outpatient Medications Medication Sig ? buPROPion XL (WELLBUTRIN XL) 300 mg 24 hr tablet Take 1 tablet by mouth once daily. ? hydrOXYzine pamoate (VISTARIL) 25 mg capsule Take 1-2 tablets every six hours as needed for panic attacks ? famotidine (PEPCID) 20 mg tablet Take 1 tablet by mouth at bedtime as needed. ? copper (PARAGARD) 380 square mm intrauterine device 1 Intra Uterine Device by INTRAUTERINE route as directed. ? icatibant (FIRAZYR) 30 mg/3 mL injection Inject 3 mL subcutaneously as needed. ? C1 esterase inhibitor (HAEGARDA) 3,000 unit solr Inject two 3000 units every 3 days ? EPINEPHrine 0.3 mg/0.3 mL auto-injector Inject 0.3 mL intramuscularly as needed. USE PRN FOR ANAPHYLAXIS AND DIFFICULTY BREATHING No current facility-administered medications for this visit. ALLERGIES: Patient has no known allergies. PERSONAL HISTORY: SOCIAL HISTORY Social History Tobacco Use ? Smoking status: Never Smoker ? Smokeless tobacco: Never Used Vaping Use ? Vaping Use: Never used Substance Use Topics ? Alcohol use: Not Currently ? Drug use: Never FAMILY HISTORY: FAMILY HISTORY FAMILY HISTORY Problem Relation Age of Onset ? No Known Problems Mother ? other (hereditary angioedema) Father ? Asthma Father ? No Known Problems Sister ? Arrythmias Brother ? Asthma Maternal Grandmother ? Diabetes Maternal Grandmother ? No Known Problems Maternal Grandfather ? other (hereditary angiodema) Paternal Grandmother ? Hypertension Paternal Grandmother ? No Known Problems Paternal Grandfather REVIEW OF SYMPTOMS: The review of systems data was entered by the nurse and reviewed by ak Nursing Notes: Roberta Maldonado RN 07/23/2021 9:44 AM Signed REVIEW OF SYSTEMS: General: The patient NOTES fatigue, denies weight loss, denies weight gain, denies feeling hot, and denies feelings of cold. Eyes: The patient denies glaucoma, denies eye injury/surgery, does not wear glasses or contacts. Ear/Nose/Throat: The patient denies allergies, NOTES hayfever, denies ear infections, and denies bloody noses. Cardiovascular: The patient denies chest pain, denies heart disease, denies high blood pressure,denies cardiac stent, denies prior heart attack, denies irregular heart beat, NOTES high cholesterol, NOTES poor circulation, denies heart failure, other cardiac issues, denies claudication, denies cold feet, denies peripheral arterial stent. Respiratory: The patient denies tuberculosis, denies pneumonia, denies frequent cough, denies pulmonary embolism, denies shortness of breath, and denies coughing up blood. Gastrointestinal: The patient NOTES difficulty swallowing, NOTES acid reflux, denies ulcers, denies vomiting, denies jaundice/hepatitis, denies gallbladder problems, denies black or tarry stools, NOTES hemorrhoids, NOTES bleeding from rectum, denies diverticulitis, denies constipation, denies diarrhea, denies loss of stool control, and denies hernias. Kidney/Bladder: The patient denies kidney stones, denies urine infections, and denies bloody urine. Skin: The patient denies a history of skin cancer, denies bleeding/changing moles, and denies a history of skin rash. Neurologic: The patient denies a history of epilepsy/convulsions, NOTES headaches, denies head/spinal injuries, and denies stroke/TIA. Psychiatric: The patient denies psychiatric medications, NOTES depression, and denies voices, denies substance abuse. Endocrine: The patient denies thyroid disorders, NOTES diabetes, and denies hormonal problems. Hematologic: The patient denies a history of bruising, denies bleeding, and denies anemia, denies blood clots. Infections: The patient denies a history of measles and mumps, denies rheumatic fever, and NOTES sexually transmitted diseases. Musculoskeletal: The patient NOTES back pain/injury, NOTES back problems, denies sciatica, NOTES knee/foot trouble, denies arthritis, or denies gout. When was patient's last Mammogram screening? None Last Colonoscopy: None Roberta Maldonado RN I have confirmed and edited as necessary, the PFSH and ROS obtained by others. Barbara Sainz PA-C PHYSICAL EXAMINATION: General: The patient is 25 year old female, well nourished, well hydrated in no acute distress. The patient is oriented to time, place, and person. VITALS: Blood pressure 122/58, pulse 74, temperature 36.3 ?C (97.4 ?F), height 170.2 cm (5' 7), weight 98.1 kg (216 lb 3.2 oz), last menstrual period 01/08/2021, SpO2 100 %, not currently . Body mass index is 33.86 kg/m?. HEENT: Normal cephalic, ataumatic, pupils are equally round, sclera are anicteric, mucous membranes are moist, oropharynx is clear. Neck has no masses, asymmetry or lymphadenopathy. Respiratory: Clear to auscultation and percussion. Normal respiratory excursion and pattern. Cardiac: Examination is regular rate and rhythm. Normal S1/S2 Abdominal exam: Soft, nontender, with no palpable masses. No hepatosplenomegaly. No palpable hernias. Extremities: no clubbing, cyanosis or edema. No adenopathy. LABORATORY VALUES: As Noted RADIOLOGIC STUDIES: As Noted Assessment IMPRESSION: blood in stools, dark stools, abdominal bloating PLAN: I have reviewed my findings with the surgeon. Will plan for upper and lower endoscopy. We discussed the risks and benefits of the planned endoscopy. I have informed the patient that complications can occur including failure to complete the endoscopy and perforation. The patient had the opportunity to ask questions concerning the planned endoscopy. My staff has also explained the procedure to the patient in understandable terms and has given the patient printed material concerning the procedure. The patient freely consents to surgery. The patient was offered a surgery/procedure at a [facility] facility. I have counseled the patient regarding the risk of exposure to and/or potential harm posed by the COVID-19 virus with having a surgery/procedure at this time versus the risk of delaying the surgery/procedure. It is not possible to know either the risk of delaying the surgery or procedure or chance of getting an infection with perfect accuracy, but a joint decision was made between the patient and myself to proceed at this time with endoscopy. I plan to use Golytely bowel preparation The patient takes prescription medications which I feel decrease the chance of successful sedation, therefore we will plan for procedure to be done under Monitored Anesthetic Care. Diagnoses: (K92.1) Blood in stool (primary encounter diagnosis) (R19.5) Dark stools (R14.0) Abdominal bloating I spent a total of 35 minutes on the date of the service which included preparing to see the patient, [id number] patient care, completing clinical documentation, obtaining and/or reviewing separately obtained history, performing a medically appropriate examination, counseling and educating the patient/family/caregiver, ordering medications, tests, or procedures, communicating with other HCPs (not separately reported) and care coordination (not separately reported). Barabra Sainz PA-C
[2021-08-01] MEDS: Lactated Ringers 1,000 ML 75 ML IV (13:21)
[2021-08-01 13:22] LABS: Internal QC Validated? YES +Cl - CLEAR BKGD; Pregnancy, Urine Negative Negative
--- NOTE | 2021-08-01 13:45 | IMM_PTH ---
PATIENT: BAM SYED LOC: EN U#:[id number] AGE/SX: 25/F ROOM: RE08/01/[address]: Dr. Lanie Galvez MD : 1995 BED: DIS: 08/01/2021 SPEC #: [id number] RECD: 08/02/21 13:45 STATUS: LEX REQ #: [id number] YOLA: 08/01/21 13:[address]: Lanie Galvez DEPT: IMMUNOHISTOCHEMISTRY RECD BY: Meseret Graham ENTERED: 08/02/21 13:46 SP TYPE: IMMUNO OTHR DR: Kizzy Nichols, GOLF PROFESSIONAL-C Tissues: B - Stomach, NOS Procedures: H Pylori (initial) PHYSICIAN & INSTITUTION [place] [phone] SPECIMEN INFORMATION: Tissue Source: B ? Antrum biopsy Clinical Info: Blood in stools, dark stools, abdominal bloating Specimen Number: [id number] CPT code: 40164 METHODOLOGY: Deparaffinized sections of prefer/formalin-fixed tissue or PAP/DQ stained slides are incubated with monoclonal/polyclonal antibodies/oligonucleotide probes. Localization is made via biotin free immunoperoxidase method. Appropriate controls are performed and reacted as expected. Results on target cell population are indicated in the following table: RESULTS: ANTIBODY / CLONE RESULT Block B H Pylori (polyclonal) negative These tests were developed and their performance characteristics determined by [facility]. They may not have been cleared or approved by the U.S. Food and Drug Administration. The FDA has determined that such clearance or approval is not necessary. INTERPRETATION: B. Antrum biopsy: Negative for Helicobacter pylori organisms. AM:melinda 08/05/2021
--- NOTE | 2021-08-01 14:20 | OP.CCLET_ITS ---
08/01/2021 Laly Vega NP [address] [place] [address] Re : Upper GI endoscopy procedure for Ellyn Cherry Dear Ms. Vega This procedure was performed on July. My impressions and recommendations are as follows: Impressions : - Normal first portion of the duodenum and second portion of the duodenum. Biopsied. - Normal stomach. Biopsied. - Normal esophagus. Biopsied. Recommendations : - Discharge patient to home (ambulatory). - Resume previous diet. - Continue present medications. - Await pathology results. - Follow up visit via telemedicine with Barbara Sainz PA-C to discuss results. Call to set this up, thank you My findings are described in the full procedure note, which is enclosed. If I can be of further assistance, please feel free to contact me at Doctor phone number(s): , Work: . Sincerely, MD Lanie Alcaraz MD 08/01/2021 2:19:45 PM This report has been signed electronically.
--- NOTE | 2021-08-01 14:20 | OP.EGD_ITS ---
Patient Name: Ellyn Cherry Procedure Date: 08/01/2021 1:40 PM Date of : 1995 Age: 25 Procedure: Upper GI endoscopy Indications: Upper abdominal pain Providers: Lanie Galvez MD Medicines: See the Anesthesia note for documentation of the administered medications Patient Profile: Refer to note in patient chart for documentation of history and physical. Complications: No immediate complications. Estimated blood loss: Minimal. Procedure: Pre-Anesthesia Assessment: - see anesthesia note After obtaining informed consent, the endoscope was passed under direct vision. Throughout the procedure, the patient's blood pressure, pulse, and oxygen saturations were monitored continuously. The Endoscope was introduced through the mouth, and advanced to the second part of duodenum. The upper GI endoscopy was accomplished without difficulty. The patient tolerated the procedure well. Scope In: 1:45:11 PM Scope Out: 1:56:46 PM Total Procedure Duration Time 0 hours 11 minutes 35 seconds Findings: The first portion of the duodenum and second portion of the duodenum were normal. Biopsies were taken with a cold forceps for histology because of patient's complaints. Estimated blood loss was minimal. The entire examined stomach was normal. Biopsies were taken with a cold forceps for histology because of patient's complaints. Verification of patient identification for the specimen was done by the nurse. Estimated blood loss was minimal. The examined esophagus was normal. Biopsies were taken with a cold forceps for histology of GE junction and mid esophagus because of patient's complaints. Verification of patient identification for the specimen was done by the nurse. Estimated blood loss was minimal. Impression: - Normal first portion of the duodenum and second portion of the duodenum. Biopsied. - Normal stomach. Biopsied. - Normal esophagus. Biopsied. Recommendation: - Discharge patient to home (ambulatory). - Resume previous diet. - Continue present medications. - Await pathology results. - Follow up visit via telemedicine with Barbara Sainz PA-C to discuss results. Call to set this up, thank you Procedure Code(s): --- Professional --- 95503, Esophagogastroduodenoscopy, flexible, transoral; with biopsy, single or multiple Diagnosis Code(s): --- Professional --- R10.10, Upper abdominal pain, unspecified CPT copyright 2017 [employer]. All rights reserved. The codes documented in this report are preliminary and upon him coder review may be revised to meet current compliance requirements. MD Lanie Alcaraz MD 08/01/2021 2:19:45 PM This report has been signed electronically. Number of Addenda: 0 Note Initiated On: 08/01/2021 1:40 PM
--- NOTE | 2021-08-01 14:24 | OP.COLON_ITS ---
Patient Name: Ellyn Cherry Procedure Date: 08/01/2021 1:57 PM Date of : 1995 Age: 25 Procedure: Colonoscopy Indications: Hematochezia Providers: Lanie Galvez MD Medicines: See the Anesthesia note for documentation of the administered medications Patient Profile: Refer to note in patient chart for documentation of history and physical. Last Colonoscopy: none. The patient's first colonoscopy is today. Complications: No immediate complications. Procedure: Pre-Anesthesia Assessment: - see anesthesia note After I obtained informed consent, the scope was passed under direct vision. Throughout the procedure, the patient's blood pressure, pulse, and oxygen saturations were monitored continuously. The Colonoscope was introduced through the anus and advanced to the cecum, identified by the appendiceal orifice, ileocecal valve and palpation. The colonoscopy was performed without difficulty. The patient tolerated the procedure well. The quality of the bowel preparation was adequate. Scope In: 2:00:05 PM Scope Withdrawal Time 0 hours 7 minutes 16 seconds Scope Out: 2:12:48 PM Total Procedure Duration Time 0 hours 12 minutes 43 seconds Findings: The perianal and digital rectal examinations were normal. Non-bleeding external and internal hemorrhoids were found. Also external thrombosed hemorrhoid noted Impression: - Non-bleeding external and internal hemorrhoids. - No specimens collected. Recommendation: - Repeat colonoscopy as per ACS guidelines for screening for colon cancer. - Continue present medications. Procedure Code(s): --- Professional --- 74385, Colonoscopy, flexible; diagnostic, including collection of specimen(s) by brushing or washing, when performed (separate procedure) Diagnosis Code(s): --- Professional --- K92.1, Melena (includes Hematochezia) K64.8, Other hemorrhoids CPT copyright 2017 [employer]. All rights reserved. The codes documented in this report are preliminary and upon ocean export coordinator review may be revised to meet current compliance requirements. MD Lanie Alcaraz MD 08/01/2021 2:24:06 PM This report has been signed electronically. Number of Addenda: 0 Note Initiated On: 08/01/2021 1:57 PM
--- NOTE | 2021-08-01 14:25 | OP.CCLET_ITS ---
08/01/2021 Laly Vega NP [address] [place] [address] Re : Colonoscopy procedure for Ellyn Cherry Dear Ms. Vega This procedure was performed on July. My impressions and recommendations are as follows: Impressions : - Non-bleeding external and internal hemorrhoids. - No specimens collected. Recommendations : - Repeat colonoscopy as per ACS guidelines for screening for colon cancer. - Continue present medications. My findings are described in the full procedure note, which is enclosed. If I can be of further assistance, please feel free to contact me at Doctor phone number(s): , Work: . Sincerely, MD Lanie Alcaraz MD 08/01/2021 2:24:06 PM This report has been signed electronically.
== END 2021-08-01 15:15 | disposition home or self-care (01) ==
LOC: EN 12:36 → AC 12:37
PROVIDERS: Anesthesiology; PCP Nurse Practitioner Primary Care; Referring Provider Nurse Practitioner Primary Care; Visit Provider Surgery
PROC: 0DJD8ZZ Inspection of Lower Intestinal Tract, Via Natural or Artificial Opening Endoscopic (ICD-10-PCS; CPT 45378; principal; 2021-08-01 13:40)
DX: K29.50 Unspecified chronic gastritis without bleeding (principal); K64.4 Residual hemorrhoidal skin tags; K64.8 Other hemorrhoids; K64.5 Perianal venous thrombosis; K21.9 Gastro-esophageal reflux disease without esophagitis; F32.9 Major depressive disorder, single episode, unspecified; F41.9 Anxiety disorder, unspecified; E11.9 Type 2 diabetes mellitus without complications; G43.909 Migraine, unspecified, not intractable, without status migrainosus; Z86.16 Personal history of COVID-19; Z87.19 Personal history of other diseases of the digestive system; Z79.899 Other long term (current) drug therapy
CPT/HCPCS: 43239; 45378; 81025; 87426; 88305; 88313; 88342; C9803; J7120

== ENCOUNTER 2022-02-27 10:30 | Outpatient (RCR) | payer BC, SELFPAY | END 2022-03-01 23:59 | LOC: NS 10:30 | PROVIDERS: PCP Nurse Practitioner Primary Care; Referring Provider Nurse Practitioner Primary Care; Visit Provider Nurse Practitioner Primary Care | DX: Z71.3 Dietary counseling and surveillance (principal); E66.9 Obesity, unspecified; E78.2 Mixed hyperlipidemia; Z68.34 Body mass index [BMI] 34.0-34.9, adult | CPT/HCPCS: 97802 ==

== ENCOUNTER 2022-03-13 14:07 | Outpatient (RCR) | payer BC, SELFPAY | END 2022-04-01 23:59 | LOC: NS 14:07 | PROVIDERS: PCP Nurse Practitioner Primary Care; Referring Provider Nurse Practitioner Primary Care; Visit Provider Nurse Practitioner Primary Care | DX: Z71.3 Dietary counseling and surveillance (principal); E66.9 Obesity, unspecified; E78.2 Mixed hyperlipidemia; Z68.34 Body mass index [BMI] 34.0-34.9, adult | CPT/HCPCS: 97803 ==

== ENCOUNTER 2022-04-10 09:32 | Outpatient (RCR) | payer BC, SELFPAY | END 2022-05-01 23:59 | LOC: NS 09:32 | PROVIDERS: PCP Nurse Practitioner Primary Care; Referring Provider Nurse Practitioner Primary Care; Visit Provider Nurse Practitioner Primary Care | DX: Z71.3 Dietary counseling and surveillance (principal); E66.9 Obesity, unspecified; E78.2 Mixed hyperlipidemia; Z68.34 Body mass index [BMI] 34.0-34.9, adult | CPT/HCPCS: 97803 ==

== ENCOUNTER 2024-01-31 18:46 | Emergency (ER) | payer OTHER, SELFPAY ==
[2024-01-31 18:46] VITALS: BP 136/86; PULSE 79; RESP 16; TEMP 36.6; O2SAT 97; BMI 36.8
[2024-01-31 19:48] LABS: Mucous, Urine 0 SEEN /hpf (<or=2+)
--- NOTE | 2024-01-31 19:55 | EX.ED.DYSGE1 ---
HPI History of Present Illness Chief Complaint: Complaint Informant: patient Narrative Narrative: 28-year-old female presenting to the emergency room with dysuria. Patient states that in December she was seen at an outside emergency department for dysuria and started on antibiotic. She states she felt like she had a kidney infection and it never really went away she follow-up with her PCP was given another antibiotic. She was feeling pretty good but symptoms returned and she was seen in urgent care and given another antibiotic. Patient states she again has been experiencing dysuria. She denies any changes in soaps or lotions detergents or brands of underwear. She has been menstruating for the past week with no significant change there. She denies any fever or vomiting. She notes some right-sided low back discomfort. No history of ureterolithiasis. She has not seen a urologist but plans on following up with one. She states that recently her and her and trying to get . PFSH PFS Medical History Anxiety Chest pain Depression Diabetes Difficulty swallowing Heartburn Migraine headache Non-smoker Shortness of breath on exertion Home Medications C1 esterase inhibitor 3,000 unit subcutaneous solution (Haegarda) 6,000 unit subcut MOWEFR 07/31/21 [History Last Taken Unknown] bupropion HCl 300 mg 24 hr tablet, extended release 300 mg PO DAILY 07/31/21 [History Last Taken Unknown] hydroxyzine HCl 25 mg tablet 25 mg PO BID PRN Anxiety 07/31/21 [History Last Taken Unknown] omega-3 fatty acids 1,000 mg PO DAILY 07/31/21 [History Last Taken Unknown] psyllium 1 packet PO DAILY 07/31/21 [History Last Taken Unknown] nitrofurantoin monohydrate/macrocrystals 100 mg capsule (Macrobid) 100 mg PO Q12H 7 days #14 caps 01/31/24 [Rx Last Taken Unknown] Allergy/AdvReac Type Severity Reaction Status Date / Time No Known Allergies Allergy Verified 01/31/24 18:49 Surgical History History of esophagogastroduodenoscopy (EGD) History of tonsillectomy and adenoidectomy Social History Smoking Status: Never smoker ROS ROS ED Constitutional Constitutional ED: Denies chills, fever(s) or weight loss Eyes Eyes: Denies change in vision or diplopia ENT ENT ED: Denies ear pain, rhinorrhea or sore throat Cardiovascular Cardiovascular: Denies chest pain, orthopnea, palpitations or racing heartbeat Respiratory/Chest Respiratory/Chest: Denies cough, dyspnea or orthopnea Gastrointestinal Gastrointestinal: Denies abdominal pain, diarrhea, nausea or vomiting Genitourinary Genitourinary ED: Reports dysuria; Denies hematuria or urinary frequency Musculoskeletal Musculoskeletal: Reports back pain; Denies arthralgias or myalgias Integumentary Denies abscess or rash Neurologic Neurologic: Denies headache(s) or weakness Psychiatric Psychiatric: Denies anxiety, depression, suicidal ideation or suicidal thoughts Endocrine Endocrinology: Denies polydipsia, polyphagia or polyuria Allergic/Immunologic Allergic/Immunologic ED: Denies mouth swelling, tongue swelling or urticaria EXAM Physical Exam Const Vital Signs: 01/31/24 18:46 01/31/24 21:07 01/31/24 22:48 Temperature 97.8 F 98.4 F 98.4 F Temperature Source Temporal Oral Pulse Rate 79 70 70 Respiratory Rate 16 16 16 Blood Pressure 136/86 H 123/75 H 123/75 H Blood Pressure Mean 102 91 91 Pulse Ox 97 97 97 Oxygen Delivery Method Room Air Room Air Positive well nourished and well developed General Appearance ED: well developed HEENT Reports normocephalic, head/scalp atraumatic and moist mucous membranes Eyes PERRL and EOMs intact bilaterally Neck no lymphadenopathy, supple and no JVD Resp normal respiratory effort and clear to auscultation bilaterally Cardio regular rate, regular rhythm and no murmurs GI normal to inspection, nondistended, normoactive bowel sounds and non-tender Palpation: soft Back/Spine no CVA tenderness and normal ROM Extremity normal to inspection General Extremety ED: Negative for edema General Extremity: Negative for edema Neuro oriented x3 and CN's II-XII intact bilaterally Sensorium / Orientation: alert Motor Exam: strength 5/5 throughout Psych mental status grossly normal Mood & Affect: Negative for depressed or tearful Skin no rashes or lesions noted and no wounds MDM MDM MDM Narrative Medical decision making narrative: Urinalysis shows rare bacteria 10-25 white cells positive leukocyte esterase and negative nitrates. This will be sent for culture. Spoke with the patient. I did see in her chart that she was possibly going to get a CT of the abdomen pelvis with her primary care doctor. Given her persistent symptoms I think is reasonable to obtain it tonight. This was obtained with IV contrast and shows some mild bladder wall thickening. This could be consistent with a cystitis. Given the dysuria the CT findings the urine findings are going going to place her on nitrofurantoin. She does not believe that she has been on this recently. I encouraged her to follow-up with her primary care doctor and with urology. History & Record Review Discussion w/independent historian: Patient Lab Data Labs: Laboratory Results - last 24 hr 01/31/24 19:30 Urine Color Yellow Urine Clarity Sl. Cloudy Urine pH 6.5 Ur Specific [place] 1.015 Urine Protein Negative Urine Glucose (UA) Normal Urine Ketones Negative Urine Occult Blood 25 H Urine Nitrite Negative Urine Bilirubin Negative Urine Urobilinogen Normal Ur Leukocyte Esterase 500 H Urine RBC 0-5 SEEN Urine WBC 10-25 SEEN Ur Squamous Epith Cells 0-5 SEEN Urine Bacteria RARE Urine Mucus 0 SEEN Urine Test Negative Radiography Diagnostic Testing: Clinical Impression(s) from Imaging Studies Abdomen/Pelvis CT 01/31/24 21:07 IMPRESSION: Mild wall thickening of the urinary bladder. Electronically Signed: Ruperto Roldan DO at 22:33 EDT Reading Location ID and State: [address] [place] [address] Tel [phone], Service support , Discharge Plan Triage Chief Complaint: Complaint ED Provider: Thomas Paige Dx/Rx/DC Orders Clinical Impression: Acute cystitis Instructions: ED UTIs Women Prescriptions: New nitrofurantoin monohyd/m-cryst [Macrobid] 100 mg capsule 100 mg PO Q12H 7 Days Qty: 14 0RF Rx Instructions: must administer with a meal/food No Action Metamucil Packet 1 packet PO DAILY hydroxyzine HCl 25 mg Tablet 25 mg PO BID PRN (Reason: Anxiety) [place] 3 Capsule 1,000 mg PO DAILY bupropion HCl 300 mg Tablet Extended Release 24 Hr 300 mg PO DAILY Haegarda 3,000 unit Recon Soln 6,000 unit SUBCUT MOWEFR Primary Care Provider: RIOS HINES Referrals: RIOS HINES [Other] Disposition Disposition: Home, Self Care Discharge Date/Time: 01/31/24 22:55
[2024-01-31 19:58] LABS: Color, Urine Yellow (Yellow); Glucose, Dipstick Normal (Normal); Ketone-Dipstick Negative (Negative); Leukocyte Esterase-Dipstick 500 /ul (Negative); Nitrite-Dipstick Negative (Negative); Occult Blood-Urine 25 /ul (Negative); Protein-Dipstick Negative (Negative); Specific Gravity, Urine 1.015 (1.002-1.030); Urine Bilirubin Dipstick Negative (Negative); Urine Clarity Sl. Cloudy (Clear); Urine Urobilinogen Normal (Normal); Urine pH 6.5 (5.0 - 8.0)
[2024-01-31 20:15] LABS: Red Blood Cells-Urine 0-5 SEEN /hpf (0-5); Squamous Epithelial Cells - UA 0-5 SEEN /hpf (5-10); White Blood Cells 10-25 SEEN /hpf (0-5)
[2024-01-31 20:16] LABS: Bacteria RARE /hpf (None Seen); Internal QC Validated? YES +Cl - CLEAR BKGD; Pregnancy, Urine Negative Negative
[2024-01-31 21:07] VITALS: BP 123/75; PULSE 70; RESP 16; TEMP 36.9; O2SAT 97
--- NOTE | 2024-01-31 21:07 | CT_ITS ---
STUDY: CT ABDOMEN AND PELVIS WITH CONTRAST REASON FOR EXAM: Female, 28 years old. flank pain dysuria RADIATION DOSAGE (If Supplied By Facility): CTDIvol = ( 16.56 ) mGy, DLP = ( 1286.82 ) mGycm TECHNIQUE: Transaxial images were obtained from the dome of the diaphragm to the symphysis pubis without oral contrast. IV 100mL Isovue-300 was administered. Sagittal and coronal images were reconstructed. Individualized dose optimization techniques were used for this CT. COMPARISON: None. FINDINGS: The visualized lung bases are unremarkable. The visualized portions of the heart are within normal limits. Normal liver. Normal gallbladder and extrahepatic biliary system. Normal spleen. Normal pancreas. Normal bilateral adrenal glands. Normal right kidney. Normal left kidney. Normal visualized stomach. Normal small intestine. Normal colon. The appendix is visualized and appears normal. Normal abdominal aorta. Normal inferior vena cava. Normal retroperitoneum. Mild wall thickening of the urinary bladder. Normal abdominal wall. Normal osseous structures. CT/Abdomen/Pelvis W IV Cont ONLY IMPRESSION: Mild wall thickening of the urinary bladder. Electronically Signed: Ruperto Roldan DO at 22:33 EDT Reading Location ID and State: [facility] / [place] Tel [phone], Service support ,
[2024-01-31 22:48] VITALS: BP 123/75; PULSE 70; RESP 16; TEMP 36.9; O2SAT 97
[2024-01-31] MEDS: Nitrofurantoin Macrocrystals 100 MG Capsule PO (22:50)
== END 2024-01-31 22:55 | disposition home or self-care (01) ==
PROVIDERS: Emergency Provider Emergency Medicine; Visit Provider Emergency Medicine
DX: N30.00 Acute cystitis without hematuria (principal)
CPT/HCPCS: 74177; 81001; 81025; 99282; Q9967; A4216

== ENCOUNTER 2025-02-21 19:11 | Inpatient (IN) | payer OTHER, SELFPAY ==
[2025-02-21] VITALS (8 sets, daily range): BP systolic 130–154; BP diastolic 67–83; PULSE 81–96; RESP 16–18; TEMP 36.6–36.8; O2SAT 96–97; BMI 42.3
[2025-02-21 19:51] LABS: Absolute Lymphocyte Count 1.71 X10^3/uL (0.83-4.51); Basophil# 0.03 X10^3/uL; Basophil% 0.3 % (0-1); Eosinophil# 0.07 X10^3/uL; Eosinophils% 0.7 % (0-5); Hematocrit 28.9 % (37-47); Hemoglobin 9.2 g/dL (12.0-15.0); Lymphocyte # 1.71 X10^3/ul (0.83-4.51); Lymphocyte % 16.4 % (19-41); Mean Corp Hgb Conc 31.8 g/dL (32-36); Mean Corpuscular Volume 72.3 fL (81-99); Mean Platelet Vol. 10.2 fl (6.2-12.0); Monocyte# 0.55 X10^3/uL; Monocyte% 5.3 % (0-10); NRBC Flagged by Analyzer 0.2 % (0-5); Neutrophil # 7.96 X10^3/uL (2.7-7.7); Neutrophil % 76.5 % (47-70); Platelet Count 306 K/mm3 (150-450); RBC Distribution Width CV 14.5 % (11.6-14.6); RBC Distribution Width SD 37.8 fl (35.1-43.9); White Blood Count 10.4 K/mm3 (4.4-11.0)
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
[2025-02-21 20:34] LABS: Syphilis Antibodies Nonreactive (Nonreactive)
[2025-02-21] MEDS: 0.9% Saline Lock 10 ML Syringe IV ×2 (20:49→21:23)
[2025-02-21 20:52] LABS: ALB/GLOB Ratio 1.2 RATIO (0.9-2.4); AST(SGOT) 16 U/L (<=31); Alanine Aminotransfer ALT/SGPT 10 U/L (<=34); Albumin, Serum 3.3 g/dL (3.5-5.0); Alkaline Phosphatase 164 U/L (35-104); Anion Gap 15 (5-15); BUN 5 mg/dL (4-19); BUN/Creat Ratio 7.4 RATIO (10-20); Calcium,Total 8.8 mg/dL (7.6-11.0); Carbon Dioxide 18.4 mmol/L (21.0-32.0); Chloride 105 mmol/L (98-108); Creatinine, Serum 0.68 mg/dL (0.70-1.20); EST Glomerular Filtration Rate 120 (>60); Estimated Creatinine Clearance 164.28 ml/min (50-250); Globulin 2.8 g/dL (2.2-4.2); Glucose 177 mg/dL (70-99); Potassium 3.4 mmol/L (3.3-5.1); Protein, Total 6.1 g/dL (5.9-8.4); Sodium Level 138 mmol/L (133-145); Total Bilirubin 0.23 mg/dL (0.00-1.30)
[2025-02-21 21:14] LABS: Bedside Glucose 135 mg/dL (74-106)
[2025-02-21] MEDS: Insulin NPH Human 100 UNITS/ML PEN 20 UNITS SC (21:16)
[2025-02-21 22:10] LABS: Bedside Glucose 137 mg/dL (74-106)
[2025-02-21 23:02] LABS: Protein, Urine (Random) 22.4 mg/dL (0.0-12.0); Protein:Creat Ratio 273 mg/g CRE (0-200)
[2025-02-21 23:18] LABS: Bedside Glucose 110 mg/dL (74-106)
[2025-02-22] VITALS (62 sets, daily range): BP systolic 124–170; BP diastolic 58–88; PULSE 69–121; RESP 16–18; TEMP 36.3–37; O2SAT 91–100
[2025-02-22] MEDS: 0.9% Saline Lock 10 ML Syringe IV (01:07)
[2025-02-22] MEDS: Oxytocin 15 Units/NS 250ml 15 UNITS/250 ML IV.SOLN 2 UNITS IV (01:10)
[2025-02-22] MEDS: Lactated Ringers 1,000 ML 50 ML IV (01:10)
[2025-02-22 03:09] LABS: Bedside Glucose 81 mg/dL (74-106)
[2025-02-22] MEDS: fentaNYL-bupivacaine (epidural) 100 ML BAG EPIDURAL ×3 (06:50→15:06)
[2025-02-22 07:42] LABS: Bedside Glucose 121 mg/dL (74-106)
--- NOTE | 2025-02-22 09:09 | PN.OBGYN_ITS ---
Subjective Subjective Comfortable with epidural Objective Data Objective Data Vital Signs: Vital Signs Temp Pulse Resp BP Pulse Ox 98.1 F 85 16 142/70 H 96 02/22/25 07:40 02/22/25 07:38 02/22/25 07:25 02/22/25 07:38 02/22/25 07:38 Weight: 270 lb 6.4 oz Body Mass Index (BMI) 42.3 Intake & Output: Intake and Output for Last 24 Hours 02/20/25 02/21/25 02/22/25 23:59 23:59 23:59 Intake Total 321.90 / 321.90 Balance 321.90 / 321.90 Lab / Micro Data 02/21/25 19:35 02/21/25 19:52 Labs: Laboratory Results - last 24 hr 02/21/25 19:35: WBC 10.4, RBC 4.00 L, Hgb 9.2 L, Hct 28.9 L, MCV 72.3 L, MCH 23.0 L, MCHC 31.8 L, RDW Std Deviation 37.8, RDW Coeff of Tobi 14.5, Plt Count 306, MPV 10.2, Immature Gran % (Auto) 0.800, Neut % (Auto) 76.5 H, Lymph % (Auto) 16.4 L, [place] % (Auto) 5.3, Eos % (Auto) 0.7, Baso % (Auto) 0.3, Absolute Neuts (auto) 8.0 H, Absolute Lymphs (auto) 1.71, Nucleated RBC % 0.2, Syphilis Total Ab Nonreactive, Blood Type O NEGATIVE, Antibody Screen NEGATIVE 02/21/25 19:52: Sodium 138, Potassium 3.4, Chloride 105, Carbon Dioxide 18.4 L, Anion Gap 15, BUN 5, Creatinine 0.68 L, Estim Creat Clear Calc 164.28, Est GFR (MDRD) Non-Af 120, BUN/Creatinine Ratio 7.4 L, Glucose 177 H, Calcium 8.8, Total Bilirubin 0.23, AST 16, ALT 10, Alkaline Phosphatase 164 H, Total Protein 6.1, A lbumin 3.3 L, Globulin 2.8, Albumin/Globulin Ratio 1.2 02/21/25 20:27: POC Glucose 135 H 02/21/25 21:45: POC Glucose 137 H 02/21/25 22:40: U Random Total Protein 22.4 H, Urine Creatinine 82.20, P rotein/Creatinin Ratio 273 H 02/21/25 22:44: POC Glucose 110 H 02/22/25 02:46: POC Glucose 81 02/22/25 07:20: POC Glucose 121 H Physical Exam Narrative: cvx - 4/70/-3, AROM clear fluid NST FHR Rate Baby A Baseline: 140 Variability:: Moderate Accelerations:: 15 x 15 Decelerations:: None Uterine Activity:: Q2-6 minutes Assessment & Plan (1) Gestational diabetes: QUALIFIERS: Gestational diabetes mellitus control: insulin- controlled Trimester: third trimester Qualified Code(s): O24.414 - Gestational diabetes mellitus in , insulin controlled (2) Gestational hypertension: QUALIFIERS: Trimester: third trimester Qualified Code(s): O13.3 - Gestational [-induced] hypertension without significant proteinuria, third trimester COMMENT: 29yo @ 37 weeks PLAN: Plan Continue induction
[2025-02-22 09:16] LABS: Bedside Glucose 99 mg/dL (74-106)
[2025-02-22] MEDS: Acetaminophen 500 MG Tablet PO (09:33)
[2025-02-22] MEDS: Lactated Ringers 1,000 ML 200 ML IV (10:38)
[2025-02-22 14:26] LABS: Bedside Glucose 75 mg/dL (74-106)
[2025-02-22 15:30] LABS: Bedside Glucose 71 mg/dL (74-106)
--- NOTE | 2025-02-22 16:34 | OB.VAGDELI_ITS ---
Maternal Data Information SUDHEER Calculator Estimated Delivery Date Method Current WG Current Estimate 03/15/25 Manual 37w 0d Vaginal Delivery Maternal Presentation Maternal Presentation: Medically Indicated Induction Type of Induction: Pitocin, Couch Bulb, Amniotomy and Cytotec Medical Reason for Induction: Gestational Hypertension and Other (Poorly controlled insulin-dependent gestational diabetic) Vaginal Delivery Information Procedure Performed: Spontaneous Vaginal Delivery Surgeon/Practitioner: Arelis Chaudhary Date of Procedure: 02/22/25 Pre-Procedure Diagnosis: 37 weeks, poorly controlled Gestational DM- insulin controlled, GHTN, obesity in Post-Procedure Diagnosis: same Type of anesthesia: Epidural Estimated Blood Loss: 150 Time of Delivery: 16:21 Findings Description of procedure: Patient progressed to fully dilated. Patient had poor maternal pushing efforts however delivered the head with slow delivery of the anterior shoulder followed by the posterior shoulder and the rest the infant's body. When the infant came out the was not vigorous the cord was clamped immediately and handed to the waiting nursery team for resuscitation efforts. At this time the cord was doubly clamped Pitocin was started. Arterial and venous samples were obtained. Cord blood was obtained. The placenta was then delivered intact without complication. Fundus was firm. The vagina and perineum were evaluated and no lacerations were appreciated. Presentation: Vertex Amniotic Membrane Rupture Type: Artificial Amniotic Fluid Description: Clear Placental Delivery Description: Spontaneous Placenta Disposition: [facility] Specimen collected: No Cord Vessel Description: 3 Vessels Cord Entanglement: None Cord Gases: ABG and VBG Infant A Gender: Female (1 minute): 5 (5 minute): 9 Delayed Cord Clamping: No Superintendent Storage Area clothing designer: No Post Vaginal Deli Medications given after delivery: IV Pitocin Episiotomy Description: None Laceration: None Complication Complications: No
[2025-02-22] MEDS: Oxytocin 15 Units/NS 250ml 15 UNITS/250 ML IV.SOLN 83 UNITS IV (16:55)
[2025-02-22] MEDS: Ondansetron 4 MG/2 ML Vial IV (17:04)
[2025-02-22] MEDS: Ibuprofen 600 MG Tablet PO (17:51)
[2025-02-22 17:53] LABS: Bedside Glucose 85 mg/dL (74-106)
[2025-02-23 00:40] VITALS: BP 146/81; PULSE 100; RESP 16; TEMP 36.3; O2SAT 97
[2025-02-23] MEDS: Acetaminophen 500 MG Tablet 1000 MG PO ×2 (00:53→12:19)
[2025-02-23] MEDS: Rho(D) Immune Globulin 300 MCG (1500 Unit) Syringe IV (03:12)
[2025-02-23 04:27] VITALS: BP 136/75; PULSE 80; RESP 18; TEMP 36.6; O2SAT 96
[2025-02-23 05:59] LABS: Bedside Glucose 138 mg/dL (74-106)
[2025-02-23 09:17] VITALS: BP 125/68; PULSE 81; RESP 18; TEMP 36.3; O2SAT 96
[2025-02-23] MEDS: Hydrocortisone 2.5% Crm 1 APPLIC TOPICAL (09:25)
[2025-02-23] MEDS: Dibucaine 30 GM Tube 1 APPLIC TOPICAL (09:26)
[2025-02-23] MEDS: buPROPion (XL) 300 MG TABLET.XL PO (09:27)
[2025-02-23] MEDS: Ibuprofen 600 MG Tablet PO ×2 (09:27→18:51)
[2025-02-23] MEDS: Senna/Docusate Sodium 1 Tablet PO (09:28)
--- NOTE | 2025-02-23 10:08 | PN_ITS ---
Subjective Subjective patient seen at bedside, doing well. Patient reports good pain control. lochia mild. bottle feeding Objective Data Objective Data Vital Signs: Vital Signs Temp Pulse Resp BP Pulse Ox O2 Del Method 97.3 F L 81 18 125/68 H 96 Room Air 02/23/25 09:17 02/23/25 09:17 02/23/25 09:17 02/23/25 09:17 02/23/25 09:17 02/23/25 09:17 Oxygen Delivery Method Room Air Weight: 122.651 kg Body Mass Index (BMI) 42.3 Intake & Output: Intake and Output for Last 24 Hours 02/21/25 02/22/25 02/23/25 23:59 23:59 23:59 Intake Total 2407.00 / 2407.00 Output Total 2150 / 2150 900 / 900 Balance 257.00 / 257.00 -900 / -900 Lab / Micro Data 02/21/25 19:35 02/21/25 19:52 Labs: Laboratory Results - last 24 hr 02/22/25 13:21: POC Glucose 75 02/22/25 15:12: POC Glucose 71 L 02/22/25 17:11: POC Glucose 85 02/22/25 19:55: Screen NEGATIVE, Baby's Blood Type A POSITIVE, Baby's EDGAR NEGATIVE 02/23/25 05:40: POC Glucose 138 H Physical Exam Const alert and oriented x3 General Appearance: cooperative HEENT normocephalic Neck General: normal visual inspection GI soft to palpation and non-distended GI Narrative: Fundus firm Extremity normal to inspection and no calf tenderness Skin no rashes or lesions noted Neuro oriented x3 and CN's II-XII intact bilaterally Psych mental status grossly normal Assessment & Plan Assessment/Plan (1) Vaginal delivery: (2) Gestational diabetes: QUALIFIERS: Gestational diabetes mellitus control: insulin- controlled Trimester: third trimester Qualified Code(s): O24.414 - Gestational diabetes mellitus in , insulin controlled (3) Hereditary angioedema: (4) Gestational hypertension: QUALIFIERS: Trimester: third trimester Qualified Code(s): O13.3 - Gestational [-induced] hypertension without significant proteinuria, third trimester PLAN: Plan PPD# 1 , Doing well Routine care pain mgmt ambulation continue to monitor BPs anticipate dc home tomorrow
[2025-02-23 12:00] VITALS: BP 121/76; PULSE 74; RESP 18; TEMP 36.1; O2SAT 95
[2025-02-23 16:30] VITALS: BP 131/75; PULSE 87; RESP 16; TEMP 36.2; O2SAT 97
[2025-02-23 20:40] VITALS: BP 132/77; PULSE 84; RESP 16; TEMP 36.6; O2SAT 97
[2025-02-24 01:15] VITALS: BP 139/86; PULSE 72; RESP 16; TEMP 36.4; O2SAT 98
[2025-02-24] MEDS: Ibuprofen 600 MG Tablet PO (04:29)
--- NOTE | 2025-02-24 06:05 | DS.PCM_ITS ---
Providers Date of Admission: 02/21/25 Primary Care Physician: No Primary Care Phys Reason For Visit: VAGINAL DELIVERY Diagnosis Discharge Diagnosis (1) Vaginal delivery: Status: Acute Code(s): O80 - Encounter for full-term uncomplicated delivery (2) Gestational diabetes: Status: Acute Code(s): O24.419 - Gestational diabetes mellitus in , unspecified control Qualifiers: Gestational diabetes mellitus control: insulin-controlled Trimester: t hird trimester Qualified Code(s): O24.414 - Gestational diabetes mellitus in , insulin controlled (3) Hereditary angioedema: Status: Acute Code(s): D84.1 - Defects in the complement system (4) Gestational hypertension: Status: Acute Code(s): O13.9 - Gestational [-induced] hypertension without significant proteinuria, unspecified trimester Qualifiers: Trimester: third trimester Qualified Code(s): O13.3 - Gestational [-induced] hypertension without significant proteinuria, third trimester Plan PPD 2 Blood pressures within normal ranges- no severe ranges Desires discharge home Follow up in office next week Medications at Discharge Home Medications C1 esterase inhibitor 3,000 unit subcutaneous solution (Haegarda) 6,000 unit subcut MOWEFR gdm 07/31/21 bupropion HCl 300 mg 24 hr tablet, extended release 300 mg PO DAILY 07/31/21 hydroxyzine HCl 25 mg tablet 25 mg PO BID PRN Anxiety 07/31/21 psyllium 1 packet PO DAILY 07/31/21 insulin glargine 100 unit/mL (3 mL) subcutaneous pen (Lantus Solostar U-100 Insulin) unit subcut gdm 02/21/25 acetaminophen 500 mg tablet 1,000 mg (2 x 500 mg) PO Q6H PRN PRN Pain 1-10 Or Fever #0 tabs 02/24/25 ibuprofen 600 mg tablet 600 mg PO Q6H PRN PRN Pain Score 1-10 #0 tabs 02/24/25 sennosides 8.6 mg-docusate sodium 50 mg tablet (Stimulant Laxative Plus) 1 - 2 tab PO DAILY PRN PRN Constipation #0 tabs 02/24/25 Hospital Course Operations None Procedures None Summary of Care Provided Minutes Spent on Discharge: 15 Hospital Course: Patient had vaginal delivery. Hospital course was uneventful. Physical Exam Narrative Patient seen at bedside. Denies pain. Ambulating and voiding without difficulty. Lochia decreased. Desires discharge home today. Const alert and oriented x3 General Appearance: Negative for in distress HEENT normocephalic Eyes General Eye: normal appearance of both eyes Neck General: normal visual inspection Chest Chest: symmetrical chest wall rise Resp normal respiratory effort and normal air movement Effort and Inspection: symmetric chest movement; Negative for tachypneic Auscultation: clear to auscultation bilaterally Cardio regular rate and regular rhythm Peripheral Pulses: pulses 2+ throughout GI normal to inspection, nondistended, normoactive bowel sounds Narrative: Ice to perineum OB / External & Speculum: vaginal bleeding and other Lochia decreasing Uterus Palpation: uterus fundus firm (Below U) Extremity normal to inspection, full ROM and normal capillary refill Skin no rashes or lesions noted Neuro oriented x3, CN's II-XII intact bilaterally and gait normal Psych mental status grossly normal, thought process normal and activity/motor behavior normal Weight / BMI Weight Weight: 270 lb 6.4 oz Body Mass Index (BMI) 42.3 ABG / Lab / Microbiology Data 02/21/25 19:35 02/21/25 19:52 Laboratory: Laboratory Results - last 24 hr 02/22/25 19:55: Screen NEGATIVE, Baby's Blood Type A POSITIVE, Baby's EDGAR NEGATIVE D/C Instructions Discharge Diet: No restrictions Discharge Activity: Return to Normal Activity, No Restrictions, May Drive, May Shower and May Take a Tub Bath (Warm water only. No bath salts, soaps, bubbles) May resume sexual activity in: 6-8 weeks Weight Bearing Status: Weight bearing as tolerated Call your doctor if you observe: Fever of 101 or Higher, Inability to urinate, Using more than 1 pad per hour, Shortness of breath, Dizziness, Chest pain, Calf discomfort and Uncontrolled pain DC O2, CPAP, BIPAP Needs Home O2 Discharge instructions: No Please Follow Up With: [facility] Nia FORD When: 2 weeks in office or virtual Meaningful Use Info Meaningful Use Meaningful Use Diagnoses (Choose all that apply): None applicable Ischemic Stroke Statin Dosing Therapy Reference: STATIN DOSE THERAPY REFERENCE: * Patients > 75 years receive moderate or high dose statin therapy. * Patients 75 years or YOUNGER should receive HIGH intensity statin dose unless contraindicated. You will be required to document reason for non-treatment if statin daily dose does not meet guidelines. HIGH DOSE STATIN THERAPY DAILY Atorvastatin > than or = to 40 mg Rosuvastatin > than or = to 20 mg Amlodipine + Atorvastatin > than or = to 2.5/40 mg Ezetimibe + Simvastatin 10/80 mg Simvastatin 80mg Discharge Plan Admission Admit Date/Time: 02/21/25 19:11 Primary Reason for Your Visit: Labor and Delivery Attending Provider: Arelis Chaudhary Primary Care Provider: Care Physician,No Primary Discharge Orders/Prescriptions Prescriptions: New sennosides-docusate sodium [Stimulant Laxative Plus] 8.6-50 mg Tablet 1 - 2 tab PO DAILY PRN PRN (Reason: Constipation) Qty: 0 0RF acetaminophen 500 mg Tablet 1,000 mg PO Q6H PRN PRN (Reason: Pain 1-10 Or Fever) Qty: 0 0RF ibuprofen 600 mg Tablet 600 mg PO Q6H PRN PRN (Reason: Pain Score 1-10) Qty: 0 0RF Continued psyllium Packet 1 packet PO DAILY hydroxyzine HCl 25 mg Tablet 25 mg PO BID PRN (Reason: Anxiety) bupropion HCl 300 mg Tablet Extended Release 24 Hr 300 mg PO DAILY Discontinued Stone 3 Capsule 1,000 mg PO DAILY insulin lispro 100 unit/mL insulin pen SUBCUT Patient Comments: PLEASE SEE ATTACHED FOR DETAILED DIRECTIONS nitrofurantoin monohyd/m-cryst [Macrobid] 100 mg capsule 100 mg PO Q12H 7 Days Qty: 14 0RF Rx Instructions: must administer with a meal/food No Action Haegarda 3,000 unit Recon Soln 6,000 unit SUBCUT MOWEFR insulin glargine [Lantus Solostar U-100 Insulin] 100 unit/mL (3 mL) insulin pen SUBCUT Patient Comments: INJECT 36 UNITS EVERY MORNING AND 42 UNITS EVERY EVENING Referrals / Follow Up: Huma Taylor CNM [Med Staff - Adv Practice Prof] - Care Physician,No Primary [Primary Care Provider] - Disposition Disposition (needs filled in before D/C Order can be placed): Home, Self Care
[2025-02-24 08:05] VITALS: BP 125/78; PULSE 76; RESP 15; TEMP 36.3; O2SAT 96
[2025-02-24] MEDS: Acetaminophen 500 MG Tablet 1000 MG PO (08:18)
[2025-02-24] MEDS: Senna/Docusate Sodium 1 Tablet PO (10:48)
[2025-02-24] MEDS: buPROPion (XL) 300 MG TABLET.XL PO (10:48)
== END 2025-02-24 10:55 | disposition home or self-care (01) | DRG 807 ==
PROVIDERS: Admitting Provider Obstetrics & Gynecology; Visit Provider Obstetrics & Gynecology
DX: O24.424 Gestational diabetes mellitus in childbirth, insulin controlled (principal); Z37.0 Single live birth; O13.4 Gestational [pregnancy-induced] hypertension without significant proteinuria, complicating childbirth; O99.214 Obesity complicating childbirth; Z3A.37 37 weeks gestation of pregnancy
CPT/HCPCS: 59025; 59050; 80053; 82570; 82962; 84156; 85025; 85461; 86780; 86850; 86900; 86901; 90384; 99221; A4216; G0378; J2405; J2790; J2791